=== PATIENT | female | born 1940 | race Caucasian/White ===

== ENCOUNTER 2018-01-22 18:59 | Inpatient (IN) ==
[2018-01-22] MEDS: traZODone 50 MG TABLET PO SCH (22:02)
[2018-01-22] MEDS: hydrALAZINE 25 MG TABLET PO SCH (23:48)
[2018-01-23 06:10] LABS: Basophils % 0.2 %; Eosinophils # 0.1 K/mcL (0.0-0.6); Eosinophils % 1.4 %; Hematocrit 26.9 % (35.3-44.9); Hemoglobin 9.2 g/dL (11.5-15.4); Immature Granulocytes % 0.3 % (0-4); Lymphocytes # 0.9 K/mcL (0.6-4.6); Mean Corpuscular HGB Conc 34.2 g/dL (31.6-35.5); Mean Corpuscular Hemoglobin 31.8 pg (28.0-33.3); Mean Corpuscular Volume 93.1 fL (83.0-100.0); Mean Platelet Volume 8.9 fL (9.4-12.4); Monocytes # 0.7 K/mcL (0.0-1.3); Monocytes % 10.7 %; Neutrophils # 4.8 K/mcL (1.6-8.9); Platelet Count 180 K/mcL (140-400); Red Blood Count 2.89 M/mcL (3.82-4.97); Red Cell Distribution Width 13.6 % (11.5-14.5); Segmented Neutrophils % 73.4 %
[2018-01-23 06:33] LABS: INR 1.1; Prothrombin Time 11.9 Seconds (9.4-12.1)
[2018-01-23 06:36] LABS: Activated Partial Thrombo Time 27.5 Seconds (26.0-36.0)
[2018-01-23 06:39] LABS: BUN/Creatinine Ratio 21 (6-26); Blood Urea Nitrogen 13 mg/dL (8-23); Calcium 8.5 mg/dL (8.6-10.3); Carbon Dioxide 25 mEq/L (23-29); Chloride 108 mEq/L (98-107); Glucose 114 mg/dL (70-105); Osmolality,Calculated 285 (280-300); Potassium 3.8 mEq/L (3.5-5.1); Sodium 137 mEq/L (136-145); eGFR For Non-African Americans > 60 (> 60)
[2018-01-23] MEDS: hydrALAZINE 25 MG TABLET PO SCH ×3 (09:35→23:55)
[2018-01-23] MEDS: levoFLOXacin 500 MG TABLET PO SCH (09:35)
[2018-01-23] MEDS: Aspirin Enteric Coated 81 MG Tablet PO SCH (09:35)
[2018-01-23] MEDS: Multivit/Ca/Min/Fe/FA 1 TAB TABLET PO SCH (09:36)
--- NOTE | 2018-01-23 14:36 | Internal Med History&Physical ---
Date of Encounter: 01/23/18 Time of Encounter: 14:00 Assessment and Plan (1) Hyponatremia Current visit: No Status: Acute Improved normalized (2) Hypertension Current visit: No Status: Chronic Blood pressure is well controlled Qualifiers: Hypertension type: essential hypertension Qualified Code(s): I10 - Essential (primary) hypertension (3) Hypothyroidism Current visit: No Status: Chronic By history Qualifiers: Hypothyroidism type: acquired Qualified Code(s): E03.9 - Hypothyroidism, unspecified (4) Hypokalemia Current visit: No Status: Acute Potassium is now within normal range (5) Elevated troponin Current visit: No Status: Acute Normalized will follow up with at least one check a [facility] (6) ACS (acute coronary syndrome) Current visit: No Status: Acute No shortness of breath or complaints of chest pain. (7) Near syncope Current visit: No Status: Acute Currently stable ambulated with the nurse to the bathroom without difficulty Internal Medicine - H&P: HPI Chief complaint: frequent falling Admitted From: Hospital to Hospital Transfer Plans for Post Hospital Care: Transfer Long-Term Care History of present illness: Ms. Kent is a 77 year old female Past Med Surg Social Fam HX - Past Medical History Medical history: arthritis, GERD, hyperlipidemia, hypertension, thyroid disease, other Additional medical history: chronic constipation Psychiatric history: depression - Past Surgical History Surgical History: appendectomy, hysterectomy, knee replacement Additional surgical history: left knee replacement - Social History Smoking Status: Never smoker Smokeless Tobacco Status: No Alcohol use: none Drug use: none - Family History Brother Hx Family Cardiac Disorders: Yes (CABG) Hx Family Cancer: Yes Hx Family Endocrine Disorder: Yes (diabetes) Internal Medicine - H&P: Meds Aspirin [Lo-Dose Aspirin EC] 81 mg PO DAILY 07/24/16 [History] Atorvastatin Calcium [Lipitor] 80 mg PO HS 07/24/16 [History] Calcium Carbonate [Calcium] 500 mg PO DAILY 07/24/16 [History] Donepezil [Aricept] 10 mg PO HS 07/24/16 [History] Levothyroxine [Synthroid] 50 mcg PO 0630 07/24/16 [History] Meclizine HCl [Verticalm] 25 mg PO DAILY PRN 07/24/16 [History] Mv-Mn/FA/Vit K/Lycop/Lut/Coq10 [Daily Multivitamin Capsule] 1 each PO DAILY 07/24/16 [History] Omeprazole [PriLOSEC] 40 mg PO DAILY 07/24/16 [History] traZODone [TraZODone] 50 mg PO HS 07/24/16 [History] hydrALAZINE [HydrALAZINE] 50 mg PO Q8HR #180 tablet 07/26/16 [Rx] Oxybutynin [Ditropan] 5 mg PO BID 07/28/16 [History] Potassium Chloride [Klor-Con 10] 10 meq PO BID 07/28/16 [History] Sodium Chloride [Sodium Chloride Tab] 1 gm PO TID 04/06/17 [History] Carvedilol 12.5 mg PO BID 01/20/18 [History] Chlorthalidone 25 mg PO DAILY 01/21/18 [History] Cholecalciferol (Vitamin D3) [Vitamin D3] 50,000 unit SQ QWEEK 01/21/18 [History] Escitalopram [Lexapro] 20 mg PO DAILY 01/21/18 [History] Meloxicam [Mobic] 15 mg PO DAILY 01/21/18 [History] levoFLOXacin [Levaquin] 500 mg PO DAILY tablet 01/22/18 [Rx] Allergy/AdvReac Type Severity Reaction Status Date / Time Penicillins Allergy Rash Verified 01/20/18 12:17 codeine AdvReac Vomiting Verified 01/20/18 12:17 All Systems PM: A 10-system review of systems was performed and is negative for pertinent findings except as documented above in the HPI. - Constitutional Constitutional: falls, weakness - Cardiovascular Cardiovascular ROS IM: irregular heart rhythm - Genitourinary Additional comments: Testing. Patient was diagnosed to treated for UTI from the ER Menstruation: post menopausal - Musculoskeletal Musculoskeletal ROS IM: stiffness - Constitutional Vitals: Temp Pulse Resp BP Pulse Ox 97.6 F 69 16 169/84 97 01/23/18 12:00 01/23/18 12:00 01/23/18 12:00 01/23/18 12:00 01/23/18 12:00 General appearance: Present: A&O X 2, A&O X 3, no acute distress - Head Head exam: Present: atraumatic, normocephalic - Neck Neck exam general surgery: Present: supple, trachea midline. Absent: lymphadenopathy - Respiratory Respiratory exam: Present: decreased breath sounds, CTAB, prolonged expiratory phase. Absent: accessory muscle use, rales, rhonchi, wheezes - Cardiovascular Cardiovascular exam: Present: irregular rhythm, RRR, +S1, +S2. Absent: diastolic murmur, gallop, rubs, systolic murmur - GI/Abdominal GI/Abdominal exam: Present: normal bowel sounds, soft, no peritoneal signs. Absent: distended, tenderness Internal Med - H&P Results - Labs CBC & Chem 7: 01/23/18 06:00 01/23/18 06:00 Labs: Short CBC 01/23/18 Range/Units 06:00 WBC 6.5 (4.3-11.1) K/mcL Hgb 9.2 L (11.5-15.4) g/dL Hct 26.9 L (35.3-44.9) % Plt Count 180 (140-400) K/mcL Neutrophils # 4.8 (1.6-8.9) K/mcL BMP 01/23/18 06:00 Sodium 137 Potassium 3.8 Chloride 108 H Carbon Dioxide 25 BUN 13 Creatinine 0.61 Glucose 114 H Calcium 8.5 L
[2018-01-23] MEDS: traZODone 50 MG TABLET PO SCH (20:17)
[2018-01-24] MEDS: Aspirin Enteric Coated 81 MG Tablet PO SCH (10:11)
[2018-01-24] MEDS: levoFLOXacin 500 MG TABLET PO SCH (10:11)
[2018-01-24] MEDS: hydrALAZINE 25 MG TABLET PO SCH ×2 (10:12→18:10)
[2018-01-24] MEDS: Multivit/Ca/Min/Fe/FA 1 TAB TABLET PO SCH (10:12)
--- NOTE | 2018-01-24 15:19 | Internal Med Progress Note ---
Addendum entered and electronically signed by Marc Terry DO 01/25/18 11:20: I have personally performed a face to face evaluation on this patient. I have reviewed and agree with the care plan. History and Exam by me shows: Original Note: Date of Encounter: 01/24/18 Time of Encounter: 15:13 - Assessment and plan (1) ACS (acute coronary syndrome) Current Visit: No Status: Acute Assessment and plan: Patient appears relaxed and denies any chest discomforts or palpitations. HR reg. Progressing well with therapy. Continue with current plan of care. (2) Hypertension Current Visit: No Status: Chronic Assessment and plan: VSS. Continue on current meds. Qualifiers: Hypertension type: essential hypertension Qualified Code(s): I10 - Essential (primary) hypertension - Subjective Interval history: Patient currently denies any discomforts or shortness of breath. Denies any palpitations. States that physical therapy has been progressing well. - Constitutional Vitals: Temp Pulse Resp BP Pulse Ox 98.6 F 72 18 170/95 96 01/24/18 06:56 01/24/18 06:56 01/24/18 06:56 01/24/18 06:56 01/24/18 06:56 General appearance: Present: A&O X 2, A&O X 3, no acute distress - Head Head exam: Present: atraumatic, normocephalic - Eye Eye exam: Present: PERRL, conjuntiva pink, sclera anicteric Pupils: Present: PERRL - Neck Neck exam general surgery: Present: supple, trachea midline. Absent: lymphadenopathy - Respiratory Respiratory exam: Present: CTAB. Absent: accessory muscle use, rales, rhonchi, wheezes - Cardiovascular Cardiovascular exam: Present: RRR, +S1, +S2. Absent: diastolic murmur, gallop, rubs, systolic murmur - GI/Abdominal GI/Abdominal exam: Present: normal bowel sounds, soft, no peritoneal signs. Absent: distended, tenderness - Extremities Exam Extremities exam: Present: warm, radial pulses palpable and symmetrical. Absent: calf tenderness, cyanotic, pedal edema - Neurological Exam Neurological exam: Present: CN II-XII intact, oriented X3, no focal deficits. Absent: pronater drift, facial droop, speech deficit - Skin Skin exam: Present: dry, intact Internal Medicine: Result - Labs CBC & Chem 7: 01/23/18 06:00 01/23/18 06:00 - ABG Interpretation ABG results: PT/INR, D-dimer PT 11.9 Seconds (9.4-12.1) 01/23/18 06:00 - VTE Documentation of Mechanical Device: Graduated compression elastic hosiery Consult Discharge Plan - Plan Referrals: Nino Mosqueda MD [Primary Care Provider] -
[2018-01-24] MEDS: traZODone 50 MG TABLET PO SCH (21:11)
[2018-01-25] MEDS: hydrALAZINE 25 MG TABLET PO SCH ×3 (00:23→17:16)
[2018-01-25] MEDS: Multivit/Ca/Min/Fe/FA 1 TAB TABLET PO SCH (10:48)
[2018-01-25] MEDS: levoFLOXacin 500 MG TABLET PO SCH (10:48)
[2018-01-25] MEDS: Aspirin Enteric Coated 81 MG Tablet PO SCH (10:49)
--- NOTE | 2018-01-25 12:48 | Internal Med Progress Note ---
Date of Encounter: 01/25/18 Time of Encounter: 12:47 - Assessment and plan (1) ACS (acute coronary syndrome) Current Visit: No Status: Acute Assessment and plan: Patient appears relaxed and denies any chest discomforts or palpitations. HR reg. Progressing well with therapy. Continue with current plan of care. (2) Hypertension Current Visit: No Status: Chronic Assessment and plan: VSS. Continue on current meds. Qualifiers: Hypertension type: essential hypertension Qualified Code(s): I10 - Essential (primary) hypertension - Time Spent With Patient less than 15 minutes - Subjective Interval history: Patient currently denies any discomforts or shortness of breath. Denies any palpitations. States that physical therapy has been progressing well. - Constitutional Vitals: Temp Pulse Resp BP Pulse Ox 98.2 F 73 16 179/91 94 01/25/18 07:00 01/25/18 07:00 01/25/18 07:00 01/25/18 07:00 01/25/18 07:00 General appearance: Present: A&O X 2, A&O X 3, no acute distress - Head Head exam: Present: atraumatic, normocephalic - Eye Eye exam: Present: PERRL, conjuntiva pink, sclera anicteric Pupils: Present: PERRL - Neck Neck exam general surgery: Present: supple, trachea midline. Absent: lymphadenopathy - Respiratory Respiratory exam: Present: CTAB. Absent: accessory muscle use, rales, rhonchi, wheezes - Cardiovascular Cardiovascular exam: Present: RRR, +S1, +S2. Absent: diastolic murmur, gallop, rubs, systolic murmur - GI/Abdominal GI/Abdominal exam: Present: normal bowel sounds, soft, no peritoneal signs. Absent: distended, tenderness - Extremities Exam Extremities exam: Present: warm, radial pulses palpable and symmetrical. Absent: calf tenderness, cyanotic, pedal edema - Neurological Exam Neurological exam: Present: CN II-XII intact, oriented X3, no focal deficits. Absent: pronater drift, facial droop, speech deficit - Skin Skin exam: Present: dry, intact Internal Medicine: Result - Labs CBC & Chem 7: 01/23/18 06:00 01/23/18 06:00 - ABG Interpretation ABG results: PT/INR, D-dimer PT 11.9 Seconds (9.4-12.1) 01/23/18 06:00 - VTE Documentation of Mechanical Device: Graduated compression elastic hosiery Consult Discharge Plan - Plan Referrals: Nino Mosqueda MD [Primary Care Provider] -
[2018-01-25] MEDS: traZODone 50 MG TABLET PO SCH (22:30)
[2018-01-26] MEDS: hydrALAZINE 25 MG TABLET PO SCH ×4 (01:22→23:50)
[2018-01-26] MEDS: Aspirin Enteric Coated 81 MG Tablet PO SCH (08:32)
[2018-01-26] MEDS: Multivit/Ca/Min/Fe/FA 1 TAB TABLET PO SCH (08:33)
[2018-01-26] MEDS: levoFLOXacin 500 MG TABLET PO SCH (08:33)
--- NOTE | 2018-01-26 10:19 | Internal Med Progress Note ---
Date of Encounter: 01/26/18 Time of Encounter: 10:18 - Subjective Interval history: - Assessment and plan (1) ACS (acute coronary syndrome) Current Visit: No Status: Acute Assessment and plan: Patient appears relaxed and denies any chest discomforts or palpitations. HR reg. Progressing well with therapy. Continue with current plan of care. She is on diuretic and BP stable. Will recheck basic metabolic profile. (2) Hypertension Current Visit: No Status: Chronic Assessment and plan: VSS. Continue on current meds. Qualifiers: Hypertension type: essential hypertension Qualified Code(s): I10 - Essential (primary) hypertension - Time Spent With Patient less than 15 minutes - Subjective Interval history: Patient currently denies any discomforts or shortness of breath. Denies any palpitations. States that physical therapy has been progressing well. - Constitutional Vitals: Temp Pulse Resp BP Pulse Ox 98.2 F 73 16 179/91 94 01/25/18 07:00 01/25/18 07:00 01/25/18 07:00 01/25/18 07:00 01/25/18 07:00 General appearance: Present: A&O X 2, A&O X 3, no acute distress - Head Head exam: Present: atraumatic, normocephalic - Eye Eye exam: Present: PERRL, conjuntiva pink, sclera anicteric Pupils: Present: PERRL - Neck Neck exam general surgery: Present: supple, trachea midline. Absent: lymphadenopathy - Respiratory Respiratory exam: Present: CTAB. Absent: accessory muscle use, rales, rhonchi, wheezes - Cardiovascular Cardiovascular exam: Present: RRR, +S1, +S2. Absent: diastolic murmur, gallop, rubs, systolic murmur - GI/Abdominal GI/Abdominal exam: Present: normal bowel sounds, soft, no peritoneal signs. Absent: distended, tenderness - Extremities Exam Extremities exam: Present: warm, radial pulses palpable and symmetrical. Absent: calf tenderness, cyanotic, pedal edema - Neurological Exam Neurological exam: Present: CN II-XII intact, oriented X3, no focal deficits. Absent: pronater drift, facial droop, speech deficit - Skin Skin exam: Present: dry, intact - Constitutional Vitals: Temp Pulse Resp BP Pulse Ox 98.3 F 86 16 158/83 92 01/26/18 07:35 11/17/18 07:35 01/26/18 07:35 01/26/18 07:35 01/26/18 07:35 General appearance: Present: A&O X 2, A&O X 3, no acute distress Internal Medicine: Result - Labs CBC & Chem 7: 01/23/18 06:00 01/23/18 06:00 - ABG Interpretation ABG results: PT/INR, D-dimer PT 11.9 Seconds (9.4-12.1) 01/23/18 06:00 - VTE Documentation of Mechanical Device: Graduated compression elastic hosiery Consult Discharge Plan - Plan Referrals: Nino Mosqueda MD [Primary Care Provider] -
[2018-01-26] MEDS: traZODone 50 MG TABLET PO SCH (21:07)
[2018-01-27 05:30] LABS: BUN/Creatinine Ratio 29 (6-26); Blood Urea Nitrogen 19 mg/dL (8-23); Calcium 8.8 mg/dL (8.6-10.3); Carbon Dioxide 27 mEq/L (23-29); Chloride 102 mEq/L (98-107); Glucose 125 mg/dL (70-105); Osmolality,Calculated 284 (280-300); Sodium 135 mEq/L (136-145); eGFR For Non-African Americans > 60 (> 60)
[2018-01-27 05:37] LABS: Hematocrit 30.8 % (35.3-44.9); Hemoglobin 10.6 g/dL (11.5-15.4); Mean Corpuscular HGB Conc 34.4 g/dL (31.6-35.5); Mean Corpuscular Hemoglobin 31.9 pg (28.0-33.3); Mean Corpuscular Volume 92.8 fL (83.0-100.0); Mean Platelet Volume 8.4 fL (9.4-12.4); Platelet Count 303 K/mcL (140-400); Red Blood Count 3.32 M/mcL (3.82-4.97); Red Cell Distribution Width 13.4 % (11.5-14.5)
[2018-01-27] MEDS: levoFLOXacin 500 MG TABLET PO SCH (08:51)
[2018-01-27] MEDS: Multivit/Ca/Min/Fe/FA 1 TAB TABLET PO SCH (08:52)
[2018-01-27] MEDS: Aspirin Enteric Coated 81 MG Tablet PO SCH (08:52)
[2018-01-27] MEDS: hydrALAZINE 25 MG TABLET PO SCH ×3 (08:52→23:19)
--- NOTE | 2018-01-27 12:45 | Internal Med Progress Note ---
Addendum entered and electronically signed by Hugh Bustamante MD 01/27/18 14:47: Discussed with patient and regarding possible etiology of fall. None was found. She states that she is feeling better and that she was told this is all urinary tract infection, at the other hospital. asks about one week and send her home and I just referred to therapy sta ff, tomorrow. Discussed care with other providers and/or nursing. Patient has no complaint of chest discomfort, dyspnea, orthopnea, palpitations, nausea or vomiting, constipation or diarrhea, other changes in bowel habits, difficulty with urination, rash or itching, or other new complaints, except as mentioned above. Review of systems is otherwise negative. Examination: (Except as mentioned above): General: In no apparent distress. Alert and oriented 3. Nondiaphoretic. Head: Atraumatic and normocephalic. Respiratory: No use of accessory muscles. Lungs are clear throughout. Normal airflow. Cardiovascular: Regular rate and rhythm without murmur appreciated. Abdomen: Bowel sounds are normal. No hepatosplenomegaly mass or tenderness appreciated. Extremities: No cyanosis clubbing or edema. Skin: Warm and non-diaphoretic with no new lesions noted. Original Note: Date of Encounter: 01/27/18 Time of Encounter: 12:44 - Assessment and plan (1) ACS (acute coronary syndrome) Current Visit: No Status: Acute Assessment and plan: Patient appears relaxed and denies any chest discomforts or palpitations. Heart rate remains regular. Progressing well with therapy. Continue with current plan of care. (2) Hypertension Current Visit: No Status: Chronic Assessment and plan: VSS. Continue on current meds. Qualifiers: Hypertension type: essential hypertension Qualified Code(s): I10 - Essential (primary) hypertension - Time Spent With Patient less than 15 minutes - Subjective Interval history: Patient currently denies any discomforts or shortness of breath. Denies any palpitations or chest discomforts. States that physical therapy has been progressing well. - Constitutional Vitals: Temp Pulse Resp BP Pulse Ox 99.3 F 75 16 163/83 95 01/27/18 10:42 01/27/18 10:42 01/27/18 10:42 01/27/18 10:42 01/27/18 10:42 General appearance: Present: A&O X 2, A&O X 3, no acute distress - Head Head exam: Present: atraumatic, normocephalic - Eye Eye exam: Present: PERRL, conjuntiva pink, sclera anicteric Pupils: Present: PERRL - Neck Neck exam general surgery: Present: supple, trachea midline. Absent: lymphadenopathy - Respiratory Respiratory exam: Present: CTAB. Absent: accessory muscle use, rales, rhonchi, wheezes - Cardiovascular Cardiovascular exam: Present: RRR, +S1, +S2. Absent: diastolic murmur, gallop, rubs, systolic murmur - GI/Abdominal GI/Abdominal exam: Present: normal bowel sounds, soft, no peritoneal signs. Absent: distended, tenderness - Extremities Exam Extremities exam: Present: warm, radial pulses palpable and symmetrical. Absent: calf tenderness, cyanotic, pedal edema - Neurological Exam Neurological exam: Present: CN II-XII intact, oriented X3, no focal deficits. Absent: pronater drift, facial droop, speech deficit - Skin Skin exam: Present: dry, intact Internal Medicine: Result - Labs CBC & Chem 7: 01/27/18 04:15 01/27/18 04:15 Labs: Short CBC 01/27/18 Range/Units 04:15 WBC 9.0 (4.3-11.1) K/mcL Hgb 10.6 L (11.5-15.4) g/dL Hct 30.8 L (35.3-44.9) % Plt Count 303 D (140-400) K/mcL BMP 01/27/18 04:15 Sodium 135 L Potassium 4.0 Chloride 102 Carbon Dioxide 27 BUN 19 Creatinine 0.66 Glucose 125 H Calcium 8.8 - ABG Interpretation ABG results: PT/INR, D-dimer PT 11.9 Seconds (9.4-12.1) 01/23/18 06:00 - VTE Documentation of Mechanical Device: Graduated compression elastic hosiery Consult Discharge Plan - Plan Referrals: Nino Mosqueda MD [Primary Care Provider] -
[2018-01-27] MEDS: traZODone 50 MG TABLET PO SCH (20:15)
[2018-01-28 06:19] LABS: Basophils % 0.5 %; Eosinophils # 0.2 K/mcL (0.0-0.6); Eosinophils % 2.8 %; Hematocrit 33.5 % (35.3-44.9); Hemoglobin 11.3 g/dL (11.5-15.4); Immature Granulocytes % 3.5 % (0-4); Lymphocytes # 1.6 K/mcL (0.6-4.6); Lymphocytes % 19.7 %; Mean Corpuscular HGB Conc 33.7 g/dL (31.6-35.5); Mean Corpuscular Hemoglobin 31.7 pg (28.0-33.3); Mean Corpuscular Volume 93.8 fL (83.0-100.0); Mean Platelet Volume 8.6 fL (9.4-12.4); Monocytes # 0.8 K/mcL (0.0-1.3); Monocytes % 10.1 %; Neutrophils # 5.2 K/mcL (1.6-8.9); Platelet Count 345 K/mcL (140-400); Red Blood Count 3.57 M/mcL (3.82-4.97); Red Cell Distribution Width 13.5 % (11.5-14.5); Segmented Neutrophils % 63.4 %
[2018-01-28 06:34] LABS: BUN/Creatinine Ratio 20 (6-26); Blood Urea Nitrogen 15 mg/dL (8-23); Calcium 8.8 mg/dL (8.6-10.3); Carbon Dioxide 28 mEq/L (23-29); Chloride 102 mEq/L (98-107); Glucose 109 mg/dL (70-105); Osmolality,Calculated 281 (280-300); Potassium 4.3 mEq/L (3.5-5.1); Sodium 135 mEq/L (136-145); eGFR For Non-African Americans > 60 (> 60)
[2018-01-28 07:51] VITALS: BP 174/96
[2018-01-28] MEDS: levoFLOXacin 500 MG TABLET PO SCH (08:35)
[2018-01-28] MEDS: Aspirin Enteric Coated 81 MG Tablet PO SCH (08:36)
[2018-01-28] MEDS: hydrALAZINE 25 MG TABLET PO SCH (08:36)
[2018-01-28] MEDS: Multivit/Ca/Min/Fe/FA 1 TAB TABLET PO SCH (08:37)
--- NOTE | 2018-01-28 12:01 | Physician Discharge Referral ---
Addendum entered and electronically signed by Hugh Bustamante MD 01/29/18 12:18: Original Note: Home Health/Hosp Referral Info Transfer to: Home Health Provider in Charge Post Discharge: PCP - Diagnosis (1) Frequent falls Priority: Primary Status: Acute (2) ACS (acute coronary syndrome) Priority: Primary Status: Acute (3) Hypertension Priority: Secondary Status: Chronic - Respiratory Orders Smoking Cessation: Smoking cessation has been advised. For more information, call the [place] Tobacco Quit Line at 5-759-NFGV-NOW. - Diet/Nutrition Diet/Nutrition Orders: Cardiac - Activity Activity Orders: Walker - Services Needed Following services are medically necessary services: Nursing, Physical Therapy - Transfer Medications Home Medications: Aspirin [Lo-Dose Aspirin EC] 81 mg PO DAILY 07/24/16 [History] Atorvastatin Calcium [Lipitor] 80 mg PO HS 07/24/16 [History] Calcium Carbonate [Calcium] 500 mg PO DAILY 07/24/16 [History] Donepezil [Aricept] 10 mg PO HS 07/24/16 [History] Levothyroxine [Synthroid] 50 mcg PO 0630 07/24/16 [History] Meclizine HCl [Verticalm] 25 mg PO DAILY PRN 07/24/16 [History] Mv-Mn/FA/Vit K/Lycop/Lut/Coq10 [Daily Multivitamin Capsule] 1 each PO DAILY 07/24/16 [History] Omeprazole [PriLOSEC] 40 mg PO DAILY 07/24/16 [History] traZODone [TraZODone] 50 mg PO HS 07/24/16 [History] hydrALAZINE [HydrALAZINE] 50 mg PO Q8HR #180 tablet 07/26/16 [Rx] Oxybutynin [Ditropan] 5 mg PO BID 07/28/16 [History] Potassium Chloride [Klor-Con 10] 10 meq PO BID 07/28/16 [History] Sodium Chloride [Sodium Chloride Tab] 1 gm PO TID 04/06/17 [History] Carvedilol 12.5 mg PO BID 01/20/18 [History] Chlorthalidone 25 mg PO DAILY 01/21/18 [History] Cholecalciferol (Vitamin D3) [Vitamin D3] 50,000 unit SQ QWEEK 01/21/18 [History] Escitalopram [Lexapro] 20 mg PO DAILY 01/21/18 [History] Meloxicam [Mobic] 15 mg PO DAILY 01/21/18 [History] levoFLOXacin [Levaquin] 500 mg PO DAILY tablet 01/22/18 [Rx] Allergies/Adverse Reactions: Allergy/AdvReac Type Severity Reaction Status Date / Time Penicillins Allergy Rash Verified 01/20/18 12:17 codeine AdvReac Vomiting Verified 01/20/18 12:17 Certification: Further, I certify that my clinical findings support that this patient is home bound (i.e. absences from home require considerable and taxing effort and are for medical reasons or spiritism services or infrequently or short duration when for other reasons) because: Homebound Reason: Patient requires assistance of a person or device to safely leave home, Leaving home requires considerable and taxing effort due to condition Attestation: My signature below is to certify that this patient is under my care and that I, or nurse practitioner, or a physician's assistant banquet manager working with me, has a [id number] encounter with this patient.
--- NOTE | 2018-01-28 12:05 | Discharge Summary ---
Addendum entered and electronically signed by Hugh Bustamante MD 01/28/18 14:30: I have personally performed a face to face evaluation on this patient. I have r eviewed and agree with the care plan. History and Exam by me shows: Patient with no acute complaints. She feels well and feels like she has no risk of falling or unsteadiness. We discussed the fact that this may have been related to her urinary tract infection but if she has a feeling of falling or any other falls, she needs to seek urgent medical attention. She will relate this to her and family were not present at the time my visit. Discussed care with other providers and/or nursing. Patient has no complaint of chest discomfort, dyspnea, orthopnea, palpitations, nausea or vomiting, constipation or diarrhea, other changes in bowel habits, difficulty with urination, rash or itching, or other new complaints, except as mentioned above. Review of systems is otherwise negative. Examination: (Except as mentioned above): General: In no apparent distress. Alert and oriented 3. Nondiaphoretic. Head: Atraumatic and normocephalic. Respiratory: No use of accessory muscles. Lungs are clear throughout. Normal airflow. Cardiovascular: Regular rate and rhythm without murmur appreciated. Absolutely no arrhythmia. Abdomen: Bowel sounds are normal. No hepatosplenomegaly mass or tenderness appreciated. Extremities: No cyanosis clubbing or edema. Skin: Warm and non-diaphoretic with no new lesions noted. Original Note: Orders not resulted at time of discharge: Pending orders 02/04/18 04:00 Basic Metabolic Panel MO CBC [Complete Blood Count] [HEME] MO 02/11/18 04:00 Basic Metabolic Panel MO CBC [Complete Blood Count] [HEME] MO Date of Encounter: 01/28/18 Time of Encounter: 12:02 - Discharge Diagnosis (1) Frequent falls Priority: Primary Status: Acute Comments: Continue home physical therapy. (2) ACS (acute coronary syndrome) Priority: Primary Status: Acute Comments: denies chest pain. Heart rate regular. Follow up with cardiology as scheduled. Continue medication (3) Hypertension Priority: Secondary Status: Chronic Comments: Controlled with current medication. Monitor blood pressure. Follow up with PCP. Qualifiers: Hypertension type: essential hypertension Qualified Code(s): I10 - Essential (primary) hypertension Hospital course: Ms. Kent is a 77 year old female discharging to home with . Patient is ambulating household distances with Walker. Will continue home physical therapy and nursing. Patient denies any current concerns or questions. Denies chest pain, shortness breath, fever, chills, nausea vomiting or diarrhea. Instructed to follow up with family physician in one week. Discharge discussed with: patient, family, nurse, social work - Time Spent with Patient Total time spent providing and/or coordinating discharge services: - Discharge Medications Home Medications: Aspirin [Lo-Dose Aspirin EC] 81 mg PO DAILY 07/24/16 [History] Atorvastatin Calcium [Lipitor] 80 mg PO HS 07/24/16 [History] Calcium Carbonate [Calcium] 500 mg PO DAILY 07/24/16 [History] Donepezil [Aricept] 10 mg PO HS 07/24/16 [History] Levothyroxine [Synthroid] 50 mcg PO 0630 07/24/16 [History] Meclizine HCl [Verticalm] 25 mg PO DAILY PRN 07/24/16 [History] Mv-Mn/FA/Vit K/Lycop/Lut/Coq10 [Daily Multivitamin Capsule] 1 each PO DAILY 07/24/16 [History] Omeprazole [PriLOSEC] 40 mg PO DAILY 07/24/16 [History] traZODone [TraZODone] 50 mg PO HS 07/24/16 [History] hydrALAZINE [HydrALAZINE] 50 mg PO Q8HR #180 tablet 07/26/16 [Rx] Oxybutynin [Ditropan] 5 mg PO BID 07/28/16 [History] Potassium Chloride [Klor-Con 10] 10 meq PO BID 07/28/16 [History] Sodium Chloride [Sodium Chloride Tab] 1 gm PO TID 04/06/17 [History] Carvedilol 12.5 mg PO BID 01/20/18 [History] Chlorthalidone 25 mg PO DAILY 01/21/18 [History] Cholecalciferol (Vitamin D3) [Vitamin D3] 50,000 unit SQ QWEEK 01/21/18 [History] Escitalopram [Lexapro] 20 mg PO DAILY 01/21/18 [History] Meloxicam [Mobic] 15 mg PO DAILY 01/21/18 [History] Docusate [Colace] 100 mg PO BID PRN capsule 01/28/18 [Rx] Allergies/Adverse Reactions: Allergy/AdvReac Type Severity Reaction Status Date / Time Penicillins Allergy Rash Verified 01/20/18 12:17 codeine AdvReac Vomiting Verified 01/20/18 12:17 Date of admission: 01/22/18 19:00 Primary care physician: Nino Mosqueda MD Consults: 01/22/18 21:02 Consult to Occupational Therapy [CONS] Routine Comment: Eval and Treat Reason for Consult: Eval and Treat Does patient have active BEDREST order?: No Is patient medically & hemodynamically stable?: Yes Patient assessed for mobility or mobilized this visit?: No Consult to Physical Therapy [CONS] Routine Comment: Eval and Treat Reason for Consult: Eval and Treat Does patient have active BEDREST order?: No Is patient medically & hemodynamically stable?: Yes Patient assessed for mobility or mobilized this visit?: No Consult to Recreational Therapy [CONS] Routine Comment: Consult to Tank Operator [CONS] Routine Reason for SW Consult: Discharge Planning 01/22/18 21:13 Consult to Physician [CONS] Routine Consulting Provider: Malia Cervantes Reason for Consult: Eval and Treat Call Completed: No Discharging clinician: Hugh Bustamante Anticipated date of discharge: 01/28/18 - Constitutional Vitals: Temp Pulse Resp BP Pulse Ox 98.3 F 71 17 174/96 94 01/28/18 07:50 01/28/18 07:50 01/28/18 07:50 01/28/18 07:50 01/28/18 07:50 General appearance: Present: A&O X 2, A&O X 3, no acute distress - Head Head exam: Present: atraumatic, normocephalic - Eye Eye exam: Present: PERRL, conjuntiva pink, sclera anicteric Pupils: Present: PERRL - Neck Neck exam general surgery: Present: supple, trachea midline. Absent: lymphadenopathy - Respiratory Respiratory exam: Present: CTAB. Absent: accessory muscle use, rales, rhonchi, wheezes - Cardiovascular Cardiovascular exam: Present: RRR, +S1, +S2. Absent: diastolic murmur, gallop, rubs, systolic murmur - GI/Abdominal GI/Abdominal exam: Present: normal bowel sounds, soft, no peritoneal signs. Absent: distended, tenderness - Extremities Exam Extremities exam: Present: warm, radial pulses palpable and symmetrical. Absent: calf tenderness, cyanotic, pedal edema - Neurological Exam Neurological exam: Present: CN II-XII intact, oriented X3, no focal deficits. Absent: pronater drift, facial droop, speech deficit - Skin Skin exam: Present: dry, intact - Patient Status Disposition: Home Health Service Condition: Good Functional capacity at discharge: uses cane/walker Overall status at discharge: patient is progressing back to baseline - Discharge Instructions Follow Up With: Nino Mosqueda MD [Primary Care Provider] - - Diet and Activity Activity: as per physical therapy Diet: advance to your usual diet - VTE Documentation of Mechanical Device: Graduated compression elastic hosiery
== END 2018-01-28 13:25 | disposition home health service (06) | DRG 311 ==
LOC: INPGRE 19:00
PROVIDERS: ADMIT Internal Medicine; ATTEND Internal Medicine

== ENCOUNTER 2018-04-30 10:42 | Inpatient (IN) ==
[2018-04-30] MEDS: traZODone 50 MG TABLET PO SCH (21:49)
[2018-04-30] MEDS ORDERED: Acetaminophen 325 MG TABLET PO PRN (22:03)
[2018-04-30] MEDS ORDERED: Mag Hydrox/Al Hydrox/Simeth 30 ML UDC PO PRN (22:03)
[2018-05-01] MEDS ORDERED: hydrALAZINE 25 MG TABLET PO SCH
[2018-05-01] MEDS: *HR* Enoxaparin 40 MG/0.4 ML SYRINGE SQ SCH (05:52)
[2018-05-01] MEDS: hydrALAZINE 25 MG TABLET PO SCH ×3 (05:52→21:04)
[2018-05-01 05:56] LABS: Basophils % 0.5 %; Eosinophils # 0.3 K/mcL (0.0-0.6); Eosinophils % 3.2 %; Hematocrit 35.2 % (35.3-44.9); Hemoglobin 11.8 g/dL (11.5-15.4); Immature Granulocytes % 0.4 % (0-4); Lymphocytes # 1.9 K/mcL (0.6-4.6); Lymphocytes % 23.7 %; Mean Corpuscular HGB Conc 33.5 g/dL (31.6-35.5); Mean Corpuscular Volume 92.4 fL (83.0-100.0); Mean Platelet Volume 8.6 fL (9.4-12.4); Monocytes # 1.2 K/mcL (0.0-1.3); Monocytes % 14.6 %; Neutrophils # 4.7 K/mcL (1.6-8.9); Platelet Count 243 K/mcL (140-400); Red Blood Count 3.81 M/mcL (3.82-4.97); Red Cell Distribution Width 13.2 % (11.5-14.5); Segmented Neutrophils % 57.6 %
[2018-05-01 06:01] LABS: Prothrombin Time 11.7 Seconds (9.4-12.1)
[2018-05-01 06:03] LABS: Activated Partial Thrombo Time 30.2 Seconds (26.0-36.0)
[2018-05-01 06:12] LABS: Alanine Aminotransferase 13 Units/L (7-52); Albumin 3.5 g/dL (3.5-5.7); Albumin/Globulin Ratio 1.5 (1.1-2.2); Alkaline Phosphatase 66 Units/L (34-104); Aspartate Amino Transferase 14 Units/L (13-39); BUN/Creatinine Ratio 24 (6-26); Bilirubin,Total 0.3 mg/dL (0.3-1.0); Blood Urea Nitrogen 19 mg/dL (8-23); Carbon Dioxide 33 mEq/L (23-29); Chloride 97 mEq/L (98-107); Globulin 2.3 g/dL (2.4-3.5); Glucose 116 mg/dL (70-105); Osmolality,Calculated 281 (280-300); Potassium 4.6 mEq/L (3.5-5.1); Sodium 134 mEq/L (136-145); Total Protein 5.8 g/dL (6.4-8.9); eGFR For Non-African Americans > 60 (> 60)
[2018-05-01] MEDS: Aspirin Enteric Coated 81 MG Tablet PO SCH (08:57)
[2018-05-01] MEDS: hydroCHLOROthiazide 25 MG TABLET PO SCH (08:58)
[2018-05-01] MEDS: Multivit/Ca/Min/Fe/FA 1 TAB TABLET PO SCH (08:58)
--- NOTE | 2018-05-01 16:17 | Internal Med History&Physical ---
Addendum entered and electronically signed by Ashley Queen 05/02/18 14:45: I have personally performed a face to face evaluation on this patient. I have reviewed and agree with the care plan. Original Note: Date of Encounter: 05/01/18 Time of Encounter: 16:14 Assessment and Plan (1) TIA (transient ischemic attack) Current visit: Yes Status: Acute PT and OT to eval and treat. No new neurological deficits at this time. Follow up with neurology as scheduled. (2) Hyponatremia Current visit: Yes Status: Chronic Monitor labs. Asymptomatic. (3) Hypertension Current visit: Yes Status: Chronic Controlled with current medication. Monitor blood pressure. Qualifiers: Hypertension type: essential hypertension Qualified Code(s): I10 - Essential (primary) hypertension (4) Weakness Current visit: Yes Status: Acute PT and OT to eval and treat. Will follow progress. (5) Hypothyroidism Current visit: Yes Status: Chronic Controlled with levothyroxine. Qualifiers: Hypothyroidism type: unspecified Qualified Code(s): E03.9 - Hypothyroidism, unspecified Internal Medicine - H&P: HPI Admitted From: Hospital to Hospital Transfer Plans for Post Hospital Care: Home History of present illness: Ms. Kent is a 77 year old female admitted to rehab for medical management, PT and OT. Patient was admitted to [facility] and [place] status post TIA. Patient was recently treated for UTI. Prior to admission she became unresponsiveness and aphasia. She was transferred to hospital by squad with . Patient states she is feeling fine now. Here for deconditioning. Plan to return to home with . Currently ambulating with contact guard assist with therapy with walker. Denies any new neurological symptoms. Denies fever, chills, nausea vomiting or diarrhea. States bowels are moving as normal. Past medical history includes chronic hyponatremia, hypertension, hype rlipidemia and Gerd. Past Med Surg Social Fam HX - Past Medical History Medical history: arthritis, GERD, hyperlipidemia, hypertension, thyroid disease, other Additional medical history: chronic constipation Psychiatric history: depression - Past Surgical History Surgical History: appendectomy, hysterectomy, knee replacement Additional surgical history: left knee replacement - Social History Smoking Status: Never smoker Smokeless Tobacco Status: No Alcohol use: none Drug use: none - Family History Brother Living Status: Hx Family Cardiac Disorders: Yes (CABG) Hx Family Cancer: Yes Hx Family Endocrine Disorder: Yes (diabetes) Internal Medicine - H&P: Meds Aspirin [Lo-Dose Aspirin EC] 81 mg PO DAILY 07/24/16 [History] Atorvastatin Calcium [Lipitor] 80 mg PO HS 07/24/16 [History] Calcium Carbonate [Calcium] 500 mg PO DAILY 07/24/16 [History] Donepezil [Aricept] 10 mg PO HS 07/24/16 [History] Levothyroxine [Synthroid] 50 mcg PO 0630 07/24/16 [History] Meclizine HCl [Verticalm] 25 mg PO DAILY PRN 07/24/16 [History] Mv-Mn/FA/Vit K/Lycop/Lut/Coq10 [Daily Multivitamin Capsule] 1 each PO DAILY 07/24/16 [History] Omeprazole [PriLOSEC] 40 mg PO DAILY 07/24/16 [History] traZODone [TraZODone] 50 mg PO HS 07/24/16 [History] hydrALAZINE [HydrALAZINE] 50 mg PO Q8HR #180 tablet 07/26/16 [Rx] Oxybutynin [Ditropan] 5 mg PO BID 07/28/16 [History] Potassium Chloride [Klor-Con 10] 10 meq PO BID 07/28/16 [History] Sodium Chloride [Sodium Chloride Tab] 1 gm PO TID 04/06/17 [History] Carvedilol 12.5 mg PO BID 01/20/18 [History] Chlorthalidone 25 mg PO DAILY 01/21/18 [History] Cholecalciferol (Vitamin D3) [Vitamin D3] 50,000 unit SQ WE 01/21/18 [History] Escitalopram [Lexapro] 20 mg PO DAILY 01/21/18 [History] Meloxicam [Mobic] 15 mg PO DAILY 01/21/18 [History] Docusate [Colace] 100 mg PO BID PRN capsule 01/28/18 [Rx] Alendronate Sodium 70 mg PO WE 04/27/18 [History] Guaifenesin [Mucinex] 600 mg PO Q12H PRN 04/27/18 [History] hydroCHLOROthiazide [Hydrochlorothiazide] 25 mg PO DAILY 04/27/18 [History] Allergy/AdvReac Type Severity Reaction Status Date / Time Penicillins Allergy Rash Verified 04/27/18 11:04 codeine AdvReac Vomiting Verified 04/27/18 11:04 All Systems PM: A 10-system review of systems was performed and is negative for pertinent findings except as documented above in the HPI. - Constitutional Constitutional: no chills, no fever(s), no night sweats - EENT Eyes: no change in vision, no discharge, no pain, no photophobia Ears: no ear discharge, no ear pain, no tinnitus Nose, mouth and throat: no dysphagia, no nasal discharge, no neck pain, no sore throat - Cardiovascular Cardiovascular ROS IM: no chest pain, no diaphoresis, no dyspnea, no lightheadedness, no palpitations, no syncope - Respiratory Respiratory: no cough, no dyspnea, no wheezing, no excessive phlegm production - Gastrointestinal Gastrointestinal: no abdominal pain, no diarrhea, no hematemesis, no hematochezia, no melena, no nausea, no vomiting - Genitourinary Genitourinary: no change in urinary stream, no dysuria, no flank pain, no hematuria - Musculoskeletal Musculoskeletal ROS IM: no numbness, no tingling - Integumentary Integumentary IM: no rash, no unusual bruising - Neurological Neurological ROS: no confusion, no convulsions, no focal weakness, no numbness, no tingling, no tremor(s) - Hematologic/Lymphatic Hematologic/Lymphatic: no easy bruising - Constitutional Vitals: Temp Pulse Resp BP Pulse Ox 98.2 F 70 16 134/68 95 05/01/18 14:10 05/01/18 16:11 05/01/18 16:11 05/01/18 16:11 05/01/18 16:11 General appearance: Present: cooperative, A&O X 3, pleasant, no acute distress, answers questions appropriately - Head Head exam: Present: atraumatic, normocephalic - Eye Eye exam: Present: PERRL, conjuntiva pink, sclera anicteric Pupils: Present: PERRL - Neck Neck exam general surgery: Present: supple, trachea midline. Absent: lymphadenopathy - Respiratory Respiratory exam: Present: CTAB. Absent: accessory muscle use, rales, rhonchi, wheezes - Cardiovascular Cardiovascular exam: Present: RRR, +S1, +S2. Absent: diastolic murmur, gallop, rubs, systolic murmur - GI/Abdominal GI/Abdominal exam: Present: normal bowel sounds, soft, no peritoneal signs. Absent: distended, tenderness - Extremities Exam Extremities exam: Present: warm, radial pulses palpable and symmetrical. Absent: calf tenderness, cyanotic, pedal edema - Neurological Exam Neurological exam: Present: CN II-XII intact, oriented X3, no focal deficits. Absent: pronater drift, facial droop, speech deficit - Skin Skin exam: Present: dry, intact Internal Med - H&P Results - Labs CBC & Chem 7: 05/01/18 05:50 05/01/18 05:50 Labs: Short CBC 05/01/18 Range/Units 05:50 WBC 8.2 (4.3-11.1) K/mcL Hgb 11.8 (11.5-15.4) g/dL Hct 35.2 L (35.3-44.9) % Plt Count 243 (140-400) K/mcL Neutrophils # 4.7 (1.6-8.9) K/mcL BMP 05/01/18 05:50 Sodium 134 L Potassium 4.6 Chloride 97 L Carbon Dioxide 33 H BUN 19 Creatinine 0.78 Glucose 116 H Calcium 9.0 Liver Function 05/01/18 Range/Units 05:50 Total Bilirubin 0.3 (0.3-1.0) mg/dL AST 14 (13-39) Units/L ALT 13 (7-52) Units/L Alkaline Phosphatase 66 (34-104) Units/L Albumin 3.5 (3.5-5.7) g/dL
[2018-05-01] MEDS ORDERED: NON-FORMULARY MEDICATION 1 EACH EACH (Alendronate Sodium [Alendronate Sodium] 70 MG) PO SCH (20:38)
[2018-05-01] MEDS: traZODone 50 MG TABLET PO SCH (21:04)
[2018-05-02] MEDS: hydrALAZINE 25 MG TABLET PO SCH ×3 (05:25→20:42)
[2018-05-02] MEDS: *HR* Enoxaparin 40 MG/0.4 ML SYRINGE SQ SCH (05:26)
[2018-05-02] MEDS ORDERED: Patient Taking Own Medication 1 EACH PO SCH (06:00)
[2018-05-02] MEDS: Multivit/Ca/Min/Fe/FA 1 TAB TABLET PO SCH (08:43)
[2018-05-02] MEDS: hydroCHLOROthiazide 25 MG TABLET PO SCH (08:43)
[2018-05-02] MEDS: Aspirin Enteric Coated 81 MG Tablet PO SCH (08:43)
--- NOTE | 2018-05-02 11:00 | Internal Med Progress Note ---
Addendum entered and electronically signed by Ashley Queen 05/02/18 14:46: I have personally performed a face to face evaluation on this patient. I have reviewed and agree with the care plan. She is fatigued but participating well and doing very well. Original Note: Date of Encounter: 05/02/18 Time of Encounter: 10:58 - Assessment and plan (1) TIA (transient ischemic attack) Current Visit: Yes Status: Acute Assessment and plan: No acute issues. Patient appears intact during neurological exam. Patient denies any current issues. We will continue with current therapy (2) Hypertension Current Visit: Yes Status: Chronic Assessment and plan: Vital signs are stable. We will continue with current medications. Qualifiers: Hypertension type: essential hypertension Qualified Code(s): I10 - Essential (primary) hypertension (3) Weakness Current Visit: Yes Status: Acute Assessment and plan: Patient admitted to this facility for further rehabilitation due to her weakness and history of falls. Continues with unsteady gait and uses a walker during ambulation. We will continue with physical therapy and current plan of care (4) UTI (urinary tract infection) Current Visit: Yes Status: Acute Assessment and plan: No acute issues. Patient remains afebrile at this time and denies any dysuria. We will continue to monitor closely. Qualifiers: Urinary tract infection type: site unspecified Hematuria presence: without hematuria Qualified Code(s): N39.0 - Urinary tract infection, site not specified - Time Spent With Patient less than 15 minutes - Subjective Interval history: Patient appears relaxed currently denies any discomforts or shortness of breath. She denies any dysuria - Constitutional Vitals: Temp Pulse Resp BP Pulse Ox 97.9 F 71 16 163/75 94 05/02/18 07:35 05/02/18 07:35 05/02/18 07:35 05/02/18 07:35 05/02/18 07:35 General appearance: Present: cooperative, A&O X 3, pleasant, no acute distress, answers questions appropriately - Head Head exam: Present: atraumatic, normocephalic - Eye Eye exam: Present: PERRL, conjuntiva pink, sclera anicteric Pupils: Present: PERRL - Neck Neck exam general surgery: Present: supple, trachea midline. Absent: lymphadenopathy - Respiratory Respiratory exam: Present: CTAB. Absent: accessory muscle use, rales, rhonchi, wheezes - Cardiovascular Cardiovascular exam: Present: RRR, +S1, +S2. Absent: diastolic murmur, gallop, rubs, systolic murmur - GI/Abdominal GI/Abdominal exam: Present: normal bowel sounds, soft, no peritoneal signs. Absent: distended, tenderness - Extremities Exam Extremities exam: Present: warm, radial pulses palpable and symmetrical. Absent: calf tenderness, cyanotic, pedal edema - Neurological Exam Neurological exam: Present: CN II-XII intact, oriented X3, no focal deficits. Absent: pronater drift, facial droop, speech deficit - Skin Skin exam: Present: dry, intact Internal Medicine: Result - Labs CBC & Chem 7: 05/01/18 05:50 05/01/18 05:50 - ABG Interpretation ABG results: PT/INR, D-dimer PT 11.7 Seconds (9.4-12.1) 05/01/18 05:50 Consult Discharge Plan - Plan Referrals: Rubi Reina DO [Primary Care Provider] -
[2018-05-02] MEDS: traZODone 50 MG TABLET PO SCH (20:43)
[2018-05-03] MEDS: *HR* Enoxaparin 40 MG/0.4 ML SYRINGE SQ SCH (06:04)
[2018-05-03] MEDS: hydrALAZINE 25 MG TABLET PO SCH (06:04)
[2018-05-03 07:30] VITALS: BP 133/76
[2018-05-03] MEDS: Multivit/Ca/Min/Fe/FA 1 TAB TABLET PO SCH (08:57)
[2018-05-03] MEDS: hydroCHLOROthiazide 25 MG TABLET PO SCH (08:57)
[2018-05-03] MEDS: Aspirin Enteric Coated 81 MG Tablet PO SCH (08:57)
--- NOTE | 2018-05-03 11:38 | Discharge Summary ---
Addendum entered and electronically signed by Ashley Queen 05/03/18 12:27: I examined this patient and my medical decision-making was reviewed . Original Note: Date of Encounter: 05/03/18 Time of Encounter: 11:34 - Discharge Diagnosis (1) TIA (transient ischemic attack) Priority: Primary Status: Acute Comments: Patient was transferred to this facility for further rehabilitation due to generalized weakness. Patient has been neuro intact on exam since her arrival with no recurring episodes of TIA. Patient is to continue follow-up with PCP and neurology. (2) Hypertension Priority: Secondary Status: Chronic Comments: Vital signs remained stable during her stay at this facility. Patient will be discharged home with home medications and follow-up with PCP Qualifiers: Hypertension type: essential hypertension Qualified Code(s): I10 - Essential (primary) hypertension (3) Weakness Priority: Secondary Status: Acute Comments: Patient was admitted to this facility for rehabilitation due to generalized weakness. Patient has progressed well during her stay with her therapy and will be discharged to home to continue physical therapy through home health services. (4) UTI (urinary tract infection) Priority: Secondary Status: Acute Comments: Patient has completed her round of Keflex and currently denies any dysuria. Remains afebrile. Problem resolved Qualifiers: Urinary tract infection type: site unspecified Hematuria presence: without hematuria Qualified Code(s): N39.0 - Urinary tract infection, site not specif ied Hospital course: Ms. Kent is a 77 year old female admitted to rehab for medical management, PT and OT. Patient was admitted to [facility] and [place] status post TIA. Patient was recently treated for UTI. Prior to admission she became unresponsiveness and aphasia. Denies any new neurological symptoms and has remained neurologically intact during exams while at this facility. No reoccurring episodes of TIA noted. Patient was admitted to this facility for rehabilitation due to generalized weakness and has progressed well with physical therapy. Patient will continue physical therapy at home to home health services. Denies fever, chills, nausea vomiting or diarrhea. Past medical history includes chronic hyponatremia, hypertension, hyperlipidemia and Gerd. Patient recommended to follow-up with PCP in one week Discharge discussed with: patient Time spent discussing smoking cessation with patient: 3 to 10 minutes - Time Spent with Patient Total time spent providing and/or coordinating discharge services: Less than 30 minutes - Discharge Medications Prescriptions: No Action Omeprazole [PriLOSEC] 40 mg PO DAILY Meclizine HCl [Verticalm] 25 mg PO DAILY PRN PRN Reason: Nausea Levothyroxine [Synthroid] 50 mcg PO 0630 Atorvastatin Calcium [Lipitor] 80 mg PO HS traZODone [TraZODone] 50 mg PO HS Donepezil [Aricept] 10 mg PO HS Mv-Mn/FA/Vit K/Lycop/Lut/Coq10 [Daily Multivitamin Capsule] 1 each PO DAILY Aspirin [Lo-Dose Aspirin EC] 81 mg PO DAILY Calcium Carbonate [Calcium] 500 mg PO DAILY hydrALAZINE [HydrALAZINE] 50 mg PO Q8HR #180 tablet Oxybutynin [Ditropan] 5 mg PO BID Potassium Chloride [Klor-Con 10] 10 meq PO BID Sodium Chloride [Sodium Chloride Tab] 1 gm PO TID Carvedilol 12.5 mg PO BID Chlorthalidone 25 mg PO DAILY Cholecalciferol (Vitamin D3) [Vitamin D3] 50,000 unit SQ WE Escitalopram [Lexapro] 20 mg PO DAILY Meloxicam [Mobic] 15 mg PO DAILY Alendronate Sodium 70 mg PO WE hydroCHLOROthiazide [Hydrochlorothiazide] 25 mg PO DAILY Guaifenesin [Mucinex] 600 mg PO Q12H PRN PRN Reason: Congestion Docusate [Colace] 100 mg PO BID PRN capsule PRN Reason: Constipation Home Medications: Aspirin [Lo-Dose Aspirin EC] 81 mg PO DAILY 07/24/16 [History] Atorvastatin Calcium [Lipitor] 80 mg PO HS 07/24/16 [History] Calcium Carbonate [Calcium] 500 mg PO DAILY 07/24/16 [History] Donepezil [Aricept] 10 mg PO HS 07/24/16 [History] Levothyroxine [Synthroid] 50 mcg PO 0630 07/24/16 [History] Meclizine HCl [Verticalm] 25 mg PO DAILY PRN 07/24/16 [History] Mv-Mn/FA/Vit K/Lycop/Lut/Coq10 [Daily Multivitamin Capsule] 1 each PO DAILY 07/24/16 [History] Omeprazole [PriLOSEC] 40 mg PO DAILY 07/24/16 [History] traZODone [TraZODone] 50 mg PO HS 07/24/16 [History] hydrALAZINE [HydrALAZINE] 50 mg PO Q8HR #180 tablet 07/26/16 [Rx] Oxybutynin [Ditropan] 5 mg PO BID 07/28/16 [History] Potassium Chloride [Klor-Con 10] 10 meq PO BID 07/28/16 [History] Sodium Chloride [Sodium Chloride Tab] 1 gm PO TID 04/06/17 [History] Carvedilol 12.5 mg PO BID 01/20/18 [History] Chlorthalidone 25 mg PO DAILY 01/21/18 [History] Cholecalciferol (Vitamin D3) [Vitamin D3] 50,000 unit SQ WE 01/21/18 [History] Escitalopram [Lexapro] 20 mg PO DAILY 01/21/18 [History] Meloxicam [Mobic] 15 mg PO DAILY 01/21/18 [History] Docusate [Colace] 100 mg PO BID PRN capsule 01/28/18 [Rx] Alendronate Sodium 70 mg PO WE 04/27/18 [History] Guaifenesin [Mucinex] 600 mg PO Q12H PRN 04/27/18 [History] hydroCHLOROthiazide [Hydrochlorothiazide] 25 mg PO DAILY 04/27/18 [History] Allergies/Adverse Reactions: Allergy/AdvReac Type Severity Reaction Status Date / Time Penicillins Allergy Rash Verified 04/27/18 11:04 codeine AdvReac Vomiting Verified 04/27/18 11:04 Date of admission: 04/30/18 19:54 Primary care physician: Rubi Reina Consults: 04/30/18 20:51 Consult to Nutrition [CONS] Routine Comment: weight loss Consulting Provider: NUTRITION Reason for Dietary Consult: Other Consult to Recreational Therapy [CONS] Routine Comment: Evaluate, develop and implement POC Consult to Dentist Private Practice [CONS] Routine Reason for SW Consult: discharge planning 05/01/18 04:00 Consult to Occupational Therapy [CONS] Routine Comment: Evaluate, develop and implement POC Reason for Consult: weakness Does patient have active BEDREST order?: No Is patient medically & hemodynamically stable?: Yes Patient assessed for mobility or mobilized this visit?: Yes 05/01/18 07:51 Consult to Physical Therapy [CONS] Routine Comment: Evaluate, develop and implement POC Reason for Consult: weakness, history of falls Does patient have active BEDREST order?: No Is patient medically & hemodynamically stable?: Yes Patient assessed for mobility or mobilized this visit?: Yes Discharging clinician: Ashley Queen - Constitutional Vitals: Temp Pulse Resp BP Pulse Ox 98.1 F 72 16 133/76 95 05/03/18 07:00 05/03/18 07:00 05/03/18 07:00 05/03/18 07:00 05/03/18 07:00 General appearance: Present: cooperative, A&O X 3, pleasant, no acute distress, answers questions appropriately - Head Head exam: Present: atraumatic, normocephalic - Eye Eye exam: Present: PERRL, conjuntiva pink, sclera anicteric Pupils: Present: PERRL - Neck Neck exam general surgery: Present: supple, trachea midline. Absent: lymphadenopathy - Respiratory Respiratory exam: Present: CTAB. Absent: accessory muscle use, rales, rhonchi, wheezes - Cardiovascular Cardiovascular exam: Present: RRR, +S1, +S2. Absent: diastolic murmur, gallop, rubs, systolic murmur - GI/Abdominal GI/Abdominal exam: Present: normal bowel sounds, soft, no peritoneal signs. Absent: distended, tenderness - Extremities Exam Extremities exam: Present: warm, radial pulses palpable and symmetrical. Absent: calf tenderness, cyanotic, pedal edema - Neurological Exam Neurological exam: Present: CN II-XII intact, oriented X3, no focal deficits. Absent: pronater drift, facial droop, speech deficit - Skin Skin exam: Present: dry, intact - Patient Status Disposition: Home Health Service Condition: Good Functional capacity at discharge: uses cane/walker Overall status at discharge: patient is progressing back to baseline - Discharge Instructions Follow Up With: Rubi Reina DO [Primary Care Provider] - - Diet and Activity Activity: ambulate only with your walker, as per physical therapy Diet: low fat, low cholesterol, low salt diet
--- NOTE | 2018-05-03 11:41 | Physician Discharge Referral ---
Addendum entered and electronically signed by Ashley Queen 05/03/18 12:27: I have personally performed a face to face evaluation on this patient. I have reviewed and agree with the care plan. Original Note: Home Health/Hosp Referral Info Transfer to: Home Health Provider in Charge Post Discharge: PCP - Diagnosis (1) TIA (transient ischemic attack) Priority: Primary Status: Acute (2) Hypertension Priority: Secondary Status: Chronic (3) Weakness Priority: Secondary Status: Acute (4) UTI (urinary tract infection) Priority: Secondary Status: Acute - Respiratory Orders Smoking Cessation: Smoking cessation has been advised. For more information, call the [place] Tobacco Quit Line at 2-440-JOQT-NOW. - Diet/Nutrition Diet/Nutrition Orders: No Added Salt (JOSE), Cardiac - Activity Activity Orders: Ambulate, Walker - Services Needed Following services are medically necessary services: Nursing, Home Health Aide, Physical Therapy - Transfer Medications Home Medications: Aspirin [Lo-Dose Aspirin EC] 81 mg PO DAILY 07/24/16 [History] Atorvastatin Calcium [Lipitor] 80 mg PO HS 07/24/16 [History] Calcium Carbonate [Calcium] 500 mg PO DAILY 07/24/16 [History] Donepezil [Aricept] 10 mg PO HS 07/24/16 [History] Levothyroxine [Synthroid] 50 mcg PO 0630 07/24/16 [History] Meclizine HCl [Verticalm] 25 mg PO DAILY PRN 07/24/16 [History] Mv-Mn/FA/Vit K/Lycop/Lut/Coq10 [Daily Multivitamin Capsule] 1 each PO DAILY 07/24/16 [History] Omeprazole [PriLOSEC] 40 mg PO DAILY 07/24/16 [History] traZODone [TraZODone] 50 mg PO HS 07/24/16 [History] hydrALAZINE [HydrALAZINE] 50 mg PO Q8HR #180 tablet 07/26/16 [Rx] Oxybutynin [Ditropan] 5 mg PO BID 07/28/16 [History] Potassium Chloride [Klor-Con 10] 10 meq PO BID 07/28/16 [History] Sodium Chloride [Sodium Chloride Tab] 1 gm PO TID 04/06/17 [History] Carvedilol 12.5 mg PO BID 01/20/18 [History] Chlorthalidone 25 mg PO DAILY 01/21/18 [History] Cholecalciferol (Vitamin D3) [Vitamin D3] 50,000 unit SQ WE 01/21/18 [History] Escitalopram [Lexapro] 20 mg PO DAILY 01/21/18 [History] Meloxicam [Mobic] 15 mg PO DAILY 01/21/18 [History] Docusate [Colace] 100 mg PO BID PRN capsule 01/28/18 [Rx] Alendronate Sodium 70 mg PO WE 04/27/18 [History] Guaifenesin [Mucinex] 600 mg PO Q12H PRN 04/27/18 [History] hydroCHLOROthiazide [Hydrochlorothiazide] 25 mg PO DAILY 04/27/18 [History] Allergies/Adverse Reactions: Allergy/AdvReac Type Severity Reaction Status Date / Time Penicillins Allergy Rash Verified 04/27/18 11:04 codeine AdvReac Vomiting Verified 04/27/18 11:04 Certification: Further, I certify that my clinical findings support that this patient is homebound (i.e. absences from home require considerable and taxing effort and are for medical reasons or spiritism services or infrequently or short duration when for other reasons) because: Homebound Reason: Leaving home requires considerable and taxing effort due to condition Attestation: My signature below is to certify that this patient is under my care and that I, or nurse practitioner, or a physician's teachers' assistant working with me, has a f rachna-to-face encounter with this patient.
== END 2018-05-03 11:25 | disposition home health service (06) | DRG 945 ==
LOC: INPGRE 19:54

== ENCOUNTER 2019-05-15 13:53 | Inpatient (IN) ==
[2019-05-16] MEDS ORDERED: Diclofenac Sodium (DR) 50 MG TABLET.DR PO PRN (18:39)
[2019-05-16] MEDS ORDERED: NON-FORMULARY MEDICATION 1 EACH EACH (Alendronate Sodium [Fosamax] 70 MG) PO SCH (18:45)
[2019-05-16] MEDS: Melatonin 3 MG TABLET PO PRN (19:52)
[2019-05-16] MEDS: BuPROPion SR (12 HR) 150 MG TABLET PO SCH (19:52)
[2019-05-16] MEDS: Famotidine 20 MG TABLET PO SCH (19:53)
[2019-05-16] MEDS: hydrALAZINE 25 MG TABLET PO SCH (23:39)
[2019-05-17 05:41] LABS: Basophils # 0.1 K/mcL (0.0-0.2); Basophils % 0.4 %; Eosinophils # 0.3 K/mcL (0.0-0.6); Eosinophils % 2.4 %; Hematocrit 32.5 % (35.3-44.9); Hemoglobin 11.2 g/dL (11.5-15.4); Immature Granulocytes % 0.7 % (0-4); Lymphocytes # 1.3 K/mcL (0.6-4.6); Lymphocytes % 10.3 %; Mean Corpuscular HGB Conc 34.5 g/dL (31.6-35.5); Mean Corpuscular Hemoglobin 30.8 pg (28.0-33.3); Mean Corpuscular Volume 89.3 fL (83.0-100.0); Mean Platelet Volume 8.5 fL (9.4-12.4); Monocytes # 1.4 K/mcL (0.0-1.3); Monocytes % 11.5 %; Neutrophils # 9.2 K/mcL (1.6-8.9); Platelet Count 328 K/mcL (140-400); Red Blood Count 3.64 M/mcL (3.82-4.97); Red Cell Distribution Width 14.8 % (11.5-14.5); Segmented Neutrophils % 74.7 %; White Blood Count 12.3 K/mcL (4.3-11.1)
[2019-05-17 05:58] LABS: BUN/Creatinine Ratio 15 (6-26); Blood Urea Nitrogen 10 mg/dL (8-23); Calcium 8.4 mg/dL (8.6-10.3); Carbon Dioxide 29 mEq/L (23-29); Chloride 97 mEq/L (98-107); Glucose 107 mg/dL (70-105); Osmolality,Calculated 270 (280-300); Potassium 3.9 mEq/L (3.5-5.1); Sodium 130 mEq/L (136-145); eGFR For African Americans > 60 (> 60); eGFR For Non-African Americans > 60 (> 60)
[2019-05-17] MEDS ORDERED: *HR* Enoxaparin 30 MG/0.3 ML SYRINGE SQ SCH (06:00)
[2019-05-17] MEDS: hydrALAZINE 25 MG TABLET PO SCH ×3 (09:27→23:12)
[2019-05-17] MEDS: Magnesium Oxide 400 MG TABLET PO SCH (09:27)
[2019-05-17] MEDS: Aspirin Enteric Coated 81 MG Tablet PO SCH (09:27)
[2019-05-17] MEDS: Famotidine 20 MG TABLET PO SCH ×2 (09:27→21:34)
[2019-05-17] MEDS: BuPROPion SR (12 HR) 150 MG TABLET PO SCH ×2 (09:27→21:35)
[2019-05-17] MEDS: carvediloL 6.25 MG TABLET PO SCH ×2 (09:28→17:26)
[2019-05-17 17:36] LABS: Bilirubin,Urine Negative (Negative); Blood,Urine Trace-intact (Negative); Clarity,Urine Clear (Clear); Color,Urine Yellow (Yellow); Glucose,Urine (UA) Normal (Normal); Ketones,Urine Negative (Negative); Leukocyte Esterase,Urine Trace (Negative); Nitrite,Urine Negative (Negative); Protein,Urine Trace mg/dL (Neg-Trace); Urobilinogen,Urine Normal (Normal)
[2019-05-17 18:15] LABS: Bacteria,Urine Moderate per hpf (None-Few); Squamous Epithelial Cell,Urine Few per lpf (None-Few); WBC,Urine 15-30 per hpf (0-3)
[2019-05-17] MEDS: Melatonin 3 MG TABLET PO PRN (23:14)
[2019-05-18] MEDS: *HR* Enoxaparin 40 MG/0.4 ML SYRINGE SQ SCH (05:13)
[2019-05-18] MEDS: BuPROPion SR (12 HR) 150 MG TABLET PO SCH ×2 (09:18→21:52)
[2019-05-18] MEDS: Aspirin Enteric Coated 81 MG Tablet PO SCH (09:19)
[2019-05-18] MEDS: carvediloL 6.25 MG TABLET PO SCH ×2 (09:19→16:01)
[2019-05-18] MEDS: Famotidine 20 MG TABLET PO SCH ×2 (09:19→21:52)
[2019-05-18] MEDS: Magnesium Oxide 400 MG TABLET PO SCH (09:19)
[2019-05-18] MEDS: hydrALAZINE 25 MG TABLET PO SCH ×3 (09:19→23:11)
[2019-05-18] MEDS: Melatonin 3 MG TABLET PO PRN (23:11)
[2019-05-19] MEDS: *HR* Enoxaparin 40 MG/0.4 ML SYRINGE SQ SCH (04:58)
[2019-05-19] MEDS: Magnesium Oxide 400 MG TABLET PO SCH (09:05)
[2019-05-19] MEDS: BuPROPion SR (12 HR) 150 MG TABLET PO SCH ×2 (09:05→20:10)
[2019-05-19] MEDS: carvediloL 6.25 MG TABLET PO SCH ×2 (09:05→17:40)
[2019-05-19] MEDS: hydrALAZINE 25 MG TABLET PO SCH ×2 (09:05→18:10)
[2019-05-19] MEDS: Famotidine 20 MG TABLET PO SCH ×2 (09:05→20:11)
[2019-05-19] MEDS: Aspirin Enteric Coated 81 MG Tablet PO SCH (09:05)
[2019-05-19] MEDS: hydrALAZINE 10 MG TABLET PO SCH ×2 (17:40→23:11)
[2019-05-19] MEDS: Melatonin 3 MG TABLET PO PRN (23:13)
[2019-05-20] MEDS: *HR* Enoxaparin 40 MG/0.4 ML SYRINGE SQ SCH (05:02)
[2019-05-20 05:05] LABS: Hematocrit 34.2 % (35.3-44.9); Hemoglobin 11.7 g/dL (11.5-15.4); Mean Corpuscular HGB Conc 34.2 g/dL (31.6-35.5); Mean Corpuscular Hemoglobin 30.9 pg (28.0-33.3); Mean Corpuscular Volume 90.2 fL (83.0-100.0); Mean Platelet Volume 8.2 fL (9.4-12.4); Platelet Count 359 K/mcL (140-400); Red Blood Count 3.79 M/mcL (3.82-4.97); Red Cell Distribution Width 15.2 % (11.5-14.5); White Blood Count 11.7 K/mcL (4.3-11.1)
[2019-05-20 05:21] LABS: Alanine Aminotransferase 22 Units/L (7-52); Albumin 3.4 g/dL (3.5-5.7); Albumin/Globulin Ratio 1.5 (1.1-2.2); Alkaline Phosphatase 95 Units/L (34-104); Aspartate Amino Transferase 19 Units/L (13-39); BUN/Creatinine Ratio 18 (6-26); Bilirubin,Total 0.4 mg/dL (0.3-1.0); Blood Urea Nitrogen 13 mg/dL (8-23); Carbon Dioxide 26 mEq/L (23-29); Chloride 96 mEq/L (98-107); Globulin 2.3 g/dL (2.4-3.5); Glucose 109 mg/dL (70-105); Magnesium 1.9 mg/dL (1.6-2.6); Osmolality,Calculated 265 (280-300); Potassium 4.5 mEq/L (3.5-5.1); Sodium 127 mEq/L (136-145); Total Protein 5.7 g/dL (6.4-8.9); eGFR For African Americans > 60 (> 60); eGFR For Non-African Americans > 60 (> 60)
[2019-05-20] MEDS: Famotidine 20 MG TABLET PO SCH ×2 (09:23→19:43)
[2019-05-20] MEDS: BuPROPion SR (12 HR) 150 MG TABLET PO SCH ×2 (09:23→19:43)
[2019-05-20] MEDS: carvediloL 6.25 MG TABLET PO SCH ×2 (09:23→17:24)
[2019-05-20] MEDS: Magnesium Oxide 400 MG TABLET PO SCH (09:23)
[2019-05-20] MEDS: Aspirin Enteric Coated 81 MG Tablet PO SCH (09:23)
[2019-05-20] MEDS: hydrALAZINE 10 MG TABLET PO SCH ×2 (09:24→17:24)
[2019-05-20] MEDS: Lisinopril 20 MG TABLET PO SCH (09:24)
[2019-05-20] MEDS: cephALEXin 500 MG CAPSULE PO SCH (19:42)
[2019-05-20] MEDS: hydrALAZINE 25 MG TABLET PO SCH (23:40)
[2019-05-20] MEDS: Melatonin 3 MG TABLET PO PRN (23:40)
[2019-05-21 05:45] LABS: BUN/Creatinine Ratio 23 (6-26); Blood Urea Nitrogen 19 mg/dL (8-23); Calcium 8.7 mg/dL (8.6-10.3); Carbon Dioxide 25 mEq/L (23-29); Chloride 97 mEq/L (98-107); Glucose 107 mg/dL (70-105); Osmolality,Calculated 267 (280-300); Potassium 4.6 mEq/L (3.5-5.1); Sodium 127 mEq/L (136-145); eGFR For African Americans > 60 (> 60); eGFR For Non-African Americans > 60 (> 60)
[2019-05-21] MEDS: cephALEXin 500 MG CAPSULE PO SCH ×3 (08:32→20:47)
[2019-05-21] MEDS: hydrALAZINE 25 MG TABLET PO SCH ×2 (08:32→16:15)
[2019-05-21] MEDS: Aspirin Enteric Coated 81 MG Tablet PO SCH (08:32)
[2019-05-21] MEDS: Lisinopril 20 MG TABLET PO SCH (08:32)
[2019-05-21] MEDS: carvediloL 6.25 MG TABLET PO SCH ×2 (08:32→17:04)
[2019-05-21] MEDS: Famotidine 20 MG TABLET PO SCH ×2 (08:33→20:46)
[2019-05-21] MEDS: Magnesium Oxide 400 MG TABLET PO SCH (08:33)
[2019-05-21] MEDS: BuPROPion SR (12 HR) 150 MG TABLET PO SCH ×2 (08:33→20:46)
[2019-05-21] MEDS ORDERED: 0.9 % Sodium Chloride 1,000 ML IV ONE (09:54)
[2019-05-21] MEDS ORDERED: 0.9 % Sodium Chloride 500 ML IV ONE (10:04)
[2019-05-21] MEDS ORDERED: 0.9 % Sodium Chloride 500 ML ONE (10:06)
[2019-05-21] MEDS ORDERED: 0.9 % Sodium Chloride 500 ML IVC SCH (16:15)
[2019-05-21] MEDS: Melatonin 3 MG TABLET PO PRN (20:48)
[2019-05-22] MEDS: hydrALAZINE 25 MG TABLET PO SCH ×3 (00:22→14:10)
[2019-05-22 07:22] LABS: Hematocrit 32.2 % (35.3-44.9); Hemoglobin 10.8 g/dL (11.5-15.4); Mean Corpuscular HGB Conc 33.5 g/dL (31.6-35.5); Mean Corpuscular Hemoglobin 30.5 pg (28.0-33.3); Mean Platelet Volume 8.6 fL (9.4-12.4); Platelet Count 341 K/mcL (140-400); Red Blood Count 3.54 M/mcL (3.82-4.97); Red Cell Distribution Width 15.3 % (11.5-14.5); White Blood Count 7.9 K/mcL (4.3-11.1)
[2019-05-22 07:40] LABS: BUN/Creatinine Ratio 25 (6-26); Blood Urea Nitrogen 16 mg/dL (8-23); Calcium 8.5 mg/dL (8.6-10.3); Carbon Dioxide 25 mEq/L (23-29); Chloride 99 mEq/L (98-107); Glucose 100 mg/dL (70-105); Osmolality,Calculated 269 (280-300); Potassium 4.2 mEq/L (3.5-5.1); Sodium 129 mEq/L (136-145); eGFR For African Americans > 60 (> 60); eGFR For Non-African Americans > 60 (> 60)
[2019-05-22] MEDS: BuPROPion SR (12 HR) 150 MG TABLET PO SCH ×2 (08:18→20:52)
[2019-05-22] MEDS: carvediloL 6.25 MG TABLET PO SCH ×2 (08:19→14:50)
[2019-05-22] MEDS: Famotidine 20 MG TABLET PO SCH ×2 (08:19→20:54)
[2019-05-22] MEDS: Lisinopril 20 MG TABLET PO SCH (08:19)
[2019-05-22] MEDS: Aspirin Enteric Coated 81 MG Tablet PO SCH (08:19)
[2019-05-22] MEDS: cephALEXin 500 MG CAPSULE PO SCH ×3 (08:19→20:51)
[2019-05-22] MEDS: Magnesium Oxide 400 MG TABLET PO SCH (08:19)
[2019-05-22] MEDS ORDERED: Patient Taking Own Medication 1 EACH PO SCH (09:00)
[2019-05-22] MEDS ORDERED: 0.9 % Sodium Chloride 1,000 ML IVC SCH (11:15)
[2019-05-22] MEDS: Melatonin 3 MG TABLET PO PRN (20:52)
[2019-05-23] MEDS: hydrALAZINE 25 MG TABLET PO SCH ×3 (00:25→16:24)
[2019-05-23] MEDS: cephALEXin 500 MG CAPSULE PO SCH ×3 (08:27→20:55)
[2019-05-23] MEDS: BuPROPion SR (12 HR) 150 MG TABLET PO SCH ×2 (08:27→20:55)
[2019-05-23] MEDS: Famotidine 20 MG TABLET PO SCH ×2 (08:27→20:55)
[2019-05-23] MEDS: Aspirin Enteric Coated 81 MG Tablet PO SCH (08:28)
[2019-05-23] MEDS: Magnesium Oxide 400 MG TABLET PO SCH (09:37)
[2019-05-23] MEDS: carvediloL 6.25 MG TABLET PO SCH ×2 (14:36→16:24)
[2019-05-23] MEDS: Lisinopril 20 MG TABLET PO SCH (14:37)
[2019-05-24] MEDS: hydrALAZINE 25 MG TABLET PO SCH ×3 (02:10→17:11)
[2019-05-24 06:25] LABS: BUN/Creatinine Ratio 31 (6-26); Blood Urea Nitrogen 21 mg/dL (8-23); Calcium 8.2 mg/dL (8.6-10.3); Carbon Dioxide 27 mEq/L (23-29); Chloride 101 mEq/L (98-107); Glucose 108 mg/dL (70-105); Osmolality,Calculated 278 (280-300); Potassium 3.8 mEq/L (3.5-5.1); Sodium 132 mEq/L (136-145); eGFR For African Americans > 60 (> 60); eGFR For Non-African Americans > 60 (> 60)
[2019-05-24] MEDS ORDERED: hydrALAZINE 25 MG TABLET ONE (09:00)
[2019-05-24] MEDS ORDERED: Aspirin Enteric Coated 81 MG Tablet PO ONE (09:00)
[2019-05-24] MEDS ORDERED: Magnesium Oxide 400 MG TABLET ONE (09:00)
[2019-05-24] MEDS ORDERED: carvediloL 6.25 MG TABLET ONE (09:00)
[2019-05-24] MEDS ORDERED: cephALEXin 500 MG CAPSULE PO ONE ×2 (09:00→15:17)
[2019-05-24] MEDS ORDERED: BuPROPion SR (12 HR) 150 MG TABLET PO ONE (09:00)
[2019-05-24] MEDS ORDERED: Lisinopril 20 MG TABLET ONE (09:00)
[2019-05-24] MEDS ORDERED: Famotidine 20 MG TABLET ONE (09:00)
[2019-05-24] MEDS: Magnesium Oxide 400 MG TABLET PO SCH (16:22)
[2019-05-24] MEDS: Aspirin Enteric Coated 81 MG Tablet PO SCH (16:22)
[2019-05-24] MEDS: Famotidine 20 MG TABLET PO SCH ×2 (16:22→21:01)
[2019-05-24] MEDS: cephALEXin 500 MG CAPSULE PO SCH ×2 (16:22→21:01)
[2019-05-24] MEDS: carvediloL 6.25 MG TABLET PO SCH ×2 (16:22→17:11)
[2019-05-24] MEDS: BuPROPion SR (12 HR) 150 MG TABLET PO SCH ×2 (16:23→21:01)
[2019-05-24] MEDS: Lisinopril 20 MG TABLET PO SCH (16:23)
[2019-05-24] MEDS: Melatonin 3 MG TABLET PO PRN (21:06)
[2019-05-25] MEDS: hydrALAZINE 25 MG TABLET PO SCH ×3 (00:10→17:12)
[2019-05-25] MEDS: Famotidine 20 MG TABLET PO SCH ×2 (09:02→20:24)
[2019-05-25] MEDS: cephALEXin 500 MG CAPSULE PO SCH ×3 (09:02→20:25)
[2019-05-25] MEDS: Aspirin Enteric Coated 81 MG Tablet PO SCH (09:02)
[2019-05-25] MEDS: carvediloL 6.25 MG TABLET PO SCH ×2 (09:02→17:12)
[2019-05-25] MEDS: Magnesium Oxide 400 MG TABLET PO SCH (09:03)
[2019-05-25] MEDS: Lisinopril 20 MG TABLET PO SCH (09:03)
[2019-05-25] MEDS: BuPROPion SR (12 HR) 150 MG TABLET PO SCH ×2 (09:03→20:25)
[2019-05-25] MEDS: Melatonin 3 MG TABLET PO PRN (20:30)
[2019-05-26] MEDS: hydrALAZINE 25 MG TABLET PO SCH ×4 (00:08→23:50)
[2019-05-26 05:40] LABS: Hematocrit 32.7 % (35.3-44.9); Hemoglobin 11.1 g/dL (11.5-15.4); Mean Corpuscular HGB Conc 33.9 g/dL (31.6-35.5); Mean Corpuscular Hemoglobin 30.7 pg (28.0-33.3); Mean Corpuscular Volume 90.3 fL (83.0-100.0); Mean Platelet Volume 8.3 fL (9.4-12.4); Platelet Count 319 K/mcL (140-400); Red Blood Count 3.62 M/mcL (3.82-4.97); Red Cell Distribution Width 15.1 % (11.5-14.5); White Blood Count 6.9 K/mcL (4.3-11.1)
[2019-05-26 05:55] LABS: BUN/Creatinine Ratio 24 (6-26); Blood Urea Nitrogen 14 mg/dL (8-23); Calcium 8.4 mg/dL (8.6-10.3); Carbon Dioxide 31 mEq/L (23-29); Chloride 101 mEq/L (98-107); Glucose 104 mg/dL (70-105); Magnesium 2.1 mg/dL (1.6-2.6); Osmolality,Calculated 279 (280-300); Potassium 3.6 mEq/L (3.5-5.1); Sodium 134 mEq/L (136-145); eGFR For African Americans > 60 (> 60); eGFR For Non-African Americans > 60 (> 60)
[2019-05-26] MEDS: carvediloL 6.25 MG TABLET PO SCH ×2 (08:13→16:37)
[2019-05-26] MEDS: Aspirin Enteric Coated 81 MG Tablet PO SCH (08:13)
[2019-05-26] MEDS: Lisinopril 20 MG TABLET PO SCH (08:13)
[2019-05-26] MEDS: cephALEXin 500 MG CAPSULE PO SCH ×3 (08:14→22:26)
[2019-05-26] MEDS: BuPROPion SR (12 HR) 150 MG TABLET PO SCH ×2 (08:14→22:25)
[2019-05-26] MEDS: Magnesium Oxide 400 MG TABLET PO SCH (08:14)
[2019-05-26] MEDS: Famotidine 20 MG TABLET PO SCH ×2 (08:14→22:26)
[2019-05-26] MEDS ORDERED: carvediloL 6.25 MG TABLET PO STA (21:23)
[2019-05-26] MEDS: Melatonin 3 MG TABLET PO PRN (22:26)
[2019-05-27] MEDS: Magnesium Oxide 400 MG TABLET PO SCH (08:12)
[2019-05-27] MEDS: cephALEXin 500 MG CAPSULE PO SCH ×3 (08:13→20:24)
[2019-05-27] MEDS: Aspirin Enteric Coated 81 MG Tablet PO SCH (08:13)
[2019-05-27] MEDS: carvediloL 6.25 MG TABLET PO SCH ×2 (08:13→16:41)
[2019-05-27] MEDS: hydrALAZINE 25 MG TABLET PO SCH ×2 (08:13→16:42)
[2019-05-27] MEDS: Famotidine 20 MG TABLET PO SCH ×2 (08:13→20:23)
[2019-05-27] MEDS: Lisinopril 20 MG TABLET PO SCH (08:13)
[2019-05-27] MEDS: BuPROPion SR (12 HR) 150 MG TABLET PO SCH ×2 (08:13→20:23)
[2019-05-27] MEDS: Melatonin 3 MG TABLET PO PRN (20:24)
[2019-05-28] MEDS: hydrALAZINE 25 MG TABLET PO SCH ×4 (00:13→23:22)
[2019-05-28] MEDS: carvediloL 6.25 MG TABLET PO SCH ×2 (08:23→15:50)
[2019-05-28] MEDS: cephALEXin 500 MG CAPSULE PO SCH (08:23)
[2019-05-28] MEDS: Magnesium Oxide 400 MG TABLET PO SCH (08:23)
[2019-05-28] MEDS: Famotidine 20 MG TABLET PO SCH ×2 (08:23→23:21)
[2019-05-28] MEDS: Aspirin Enteric Coated 81 MG Tablet PO SCH (08:23)
[2019-05-28] MEDS: BuPROPion SR (12 HR) 150 MG TABLET PO SCH ×2 (08:23→23:20)
[2019-05-28] MEDS: Lisinopril 20 MG TABLET PO SCH (08:23)
[2019-05-28] MEDS: Melatonin 3 MG TABLET PO PRN (23:22)
[2019-05-29] MEDS: Lisinopril 20 MG TABLET PO SCH (08:11)
[2019-05-29] MEDS: Magnesium Oxide 400 MG TABLET PO SCH (08:11)
[2019-05-29] MEDS: Aspirin Enteric Coated 81 MG Tablet PO SCH (08:11)
[2019-05-29] MEDS: carvediloL 6.25 MG TABLET PO SCH ×2 (08:11→17:43)
[2019-05-29] MEDS: BuPROPion SR (12 HR) 150 MG TABLET PO SCH ×2 (08:11→21:49)
[2019-05-29] MEDS: hydrALAZINE 25 MG TABLET PO SCH ×2 (08:11→17:43)
[2019-05-29] MEDS: Famotidine 20 MG TABLET PO SCH ×2 (08:11→21:49)
[2019-05-29] MEDS: Melatonin 3 MG TABLET PO PRN (21:50)
[2019-05-30] MEDS: hydrALAZINE 25 MG TABLET PO SCH ×4 (00:30→21:10)
[2019-05-30] MEDS: carvediloL 6.25 MG TABLET PO SCH ×2 (08:59→15:40)
[2019-05-30] MEDS: Aspirin Enteric Coated 81 MG Tablet PO SCH (08:59)
[2019-05-30] MEDS: Famotidine 20 MG TABLET PO SCH ×2 (08:59→21:11)
[2019-05-30] MEDS: Magnesium Oxide 400 MG TABLET PO SCH (09:00)
[2019-05-30] MEDS: BuPROPion SR (12 HR) 150 MG TABLET PO SCH ×2 (09:01→21:11)
[2019-05-30] MEDS: Lisinopril 20 MG TABLET PO SCH (09:01)
[2019-05-30] MEDS ORDERED: hydrALAZINE 25 MG TABLET PO SCH (12:00)
[2019-05-30] MEDS: Melatonin 3 MG TABLET PO PRN (21:11)
[2019-05-31 07:20] VITALS: BP 175/83
[2019-05-31] MEDS: carvediloL 6.25 MG TABLET PO SCH (08:34)
[2019-05-31] MEDS: Famotidine 20 MG TABLET PO SCH (08:34)
[2019-05-31] MEDS: BuPROPion SR (12 HR) 150 MG TABLET PO SCH (08:34)
[2019-05-31] MEDS: Magnesium Oxide 400 MG TABLET PO SCH (08:35)
[2019-05-31] MEDS: Aspirin Enteric Coated 81 MG Tablet PO SCH (08:35)
[2019-05-31] MEDS: hydrALAZINE 25 MG TABLET PO SCH (08:35)
[2019-05-31] MEDS: Lisinopril 20 MG TABLET PO SCH (08:35)
== END 2019-05-31 12:30 | disposition home health service (06) | DRG 57 ==
LOC: INPGRE 05-16 16:37
PROVIDERS: ADMIT Family Medicine; ATTEND Family Medicine

== ENCOUNTER 2019-09-11 11:01 | Inpatient (IN) ==
[2019-09-16] MEDS ORDERED: polyethylene glycoL 3350 17 GM POWD.PACK PO PRN (19:03)
[2019-09-16] MEDS ORDERED: Ondansetron ODT 4 MG TAB.RAPDIS SL PRN (19:03)
[2019-09-16] MEDS ORDERED: Ondansetron ODT 4 MG TAB.RAPDIS PO PRN (19:03)
[2019-09-16] MEDS ORDERED: Melatonin 3 MG TABLET PO PRN (19:03)
[2019-09-16] MEDS: Spironolactone 25 MG TABLET PO SCH (20:13)
[2019-09-16] MEDS: carvediloL 25 MG TABLET PO SCH (20:14)
[2019-09-16] MEDS: BuPROPion SR (12 HR) 150 MG TABLET PO SCH (20:19)
[2019-09-16] MEDS: Famotidine 20 MG TABLET PO SCH (20:19)
[2019-09-17] MEDS: hydrALAZINE 25 MG TABLET PO SCH ×4 (00:16→23:01)
[2019-09-17 05:39] LABS: Basophils % 0.4 %; Eosinophils # 0.1 K/mcL (0.0-0.6); Eosinophils % 1.2 %; Hematocrit 34.2 % (35.3-44.9); Hemoglobin 12.1 g/dL (11.5-15.4); Immature Granulocytes % 0.6 % (0-4); Lymphocytes # 1.6 K/mcL (0.6-4.6); Lymphocytes % 15.5 %; Mean Corpuscular HGB Conc 35.4 g/dL (31.6-35.5); Mean Corpuscular Hemoglobin 29.7 pg (28.0-33.3); Mean Platelet Volume 8.7 fL (9.4-12.4); Monocytes # 1.7 K/mcL (0.0-1.3); Monocytes % 16.5 %; Neutrophils # 6.7 K/mcL (1.6-8.9); Platelet Count 334 K/mcL (140-400); Red Blood Count 4.07 M/mcL (3.82-4.97); Red Cell Distribution Width 14.7 % (11.5-14.5); Segmented Neutrophils % 65.8 %; White Blood Count 10.1 K/mcL (4.3-11.1)
[2019-09-17 05:56] LABS: BUN/Creatinine Ratio 25 (6-26); Blood Urea Nitrogen 13 mg/dL (8-23); Carbon Dioxide 20 mEq/L (23-29); Chloride 93 mEq/L (98-107); Glucose 92 mg/dL (70-105); Osmolality,Calculated 254 (280-300); Potassium 3.7 mEq/L (3.5-5.1); Sodium 122 mEq/L (136-145); eGFR For African Americans > 60 (> 60); eGFR For Non-African Americans > 60 (> 60)
[2019-09-17 06:02] LABS: Calcium 8.8 mg/dL (8.6-10.3); Magnesium 1.6 mg/dL (1.6-2.6)
[2019-09-17] MEDS: carvediloL 25 MG TABLET PO SCH ×2 (09:42→22:47)
[2019-09-17] MEDS: BuPROPion SR (12 HR) 150 MG TABLET PO SCH ×2 (09:42→23:00)
[2019-09-17] MEDS: Famotidine 20 MG TABLET PO SCH ×2 (09:42→23:00)
[2019-09-17] MEDS: Magnesium Oxide 400 MG TABLET PO SCH (09:43)
[2019-09-17] MEDS: lisinopriL 10 MG TABLET PO SCH (09:43)
[2019-09-17] MEDS: 0.9 % Sodium Chloride 1,000 ML IVC SCH ×2 (10:15→21:26)
[2019-09-18 06:52] LABS: BUN/Creatinine Ratio 19 (6-26); Blood Urea Nitrogen 10 mg/dL (8-23); Calcium 8.1 mg/dL (8.6-10.3); Carbon Dioxide 20 mEq/L (23-29); Chloride 103 mEq/L (98-107); Glucose 96 mg/dL (70-105); Osmolality,Calculated 267 (280-300); Potassium 3.5 mEq/L (3.5-5.1); Sodium 129 mEq/L (136-145); eGFR For African Americans > 60 (> 60); eGFR For Non-African Americans > 60 (> 60)
[2019-09-18] MEDS: 0.9 % Sodium Chloride 1,000 ML IVC SCH ×2 (08:04→19:35)
[2019-09-18] MEDS: Famotidine 20 MG TABLET PO SCH ×2 (08:15→20:34)
[2019-09-18] MEDS: Magnesium Oxide 400 MG TABLET PO SCH (08:15)
[2019-09-18] MEDS: hydrALAZINE 25 MG TABLET PO SCH ×2 (08:15→16:24)
[2019-09-18] MEDS: lisinopriL 10 MG TABLET PO SCH (08:15)
[2019-09-18] MEDS: carvediloL 25 MG TABLET PO SCH ×2 (08:15→20:33)
[2019-09-18] MEDS: BuPROPion SR (12 HR) 150 MG TABLET PO SCH ×2 (08:15→20:33)
[2019-09-18 15:46] LABS: BUN/Creatinine Ratio 19 (6-26); Blood Urea Nitrogen 10 mg/dL (8-23); Calcium 8.1 mg/dL (8.6-10.3); Carbon Dioxide 19 mEq/L (23-29); Chloride 104 mEq/L (98-107); Glucose 130 mg/dL (70-105); Osmolality,Calculated 271 (280-300); Potassium 3.4 mEq/L (3.5-5.1); Sodium 130 mEq/L (136-145); eGFR For African Americans > 60 (> 60); eGFR For Non-African Americans > 60 (> 60)
[2019-09-18] MEDS ORDERED: NON-FORMULARY MEDICATION 1 EACH EACH (Alendronate Sodium [Fosamax] 70 MG) PO SCH (19:03)
[2019-09-19] MEDS: hydrALAZINE 25 MG TABLET PO SCH ×4 (00:32→23:15)
[2019-09-19] MEDS: 0.9 % Sodium Chloride 1,000 ML IVC SCH ×2 (04:56→16:36)
[2019-09-19 05:42] LABS: Hematocrit 30.8 % (35.3-44.9); Hemoglobin 10.9 g/dL (11.5-15.4); Mean Corpuscular HGB Conc 35.4 g/dL (31.6-35.5); Mean Corpuscular Hemoglobin 29.8 pg (28.0-33.3); Mean Corpuscular Volume 84.2 fL (83.0-100.0); Mean Platelet Volume 8.5 fL (9.4-12.4); Platelet Count 328 K/mcL (140-400); Red Blood Count 3.66 M/mcL (3.82-4.97); Red Cell Distribution Width 14.9 % (11.5-14.5); White Blood Count 8.1 K/mcL (4.3-11.1)
[2019-09-19 05:58] LABS: Alanine Aminotransferase 19 Units/L (7-52); Albumin 3.4 g/dL (3.5-5.7); Albumin/Globulin Ratio 1.6 (1.1-2.2); Alkaline Phosphatase 77 Units/L (34-104); Aspartate Amino Transferase 20 Units/L (13-39); BUN/Creatinine Ratio 13 (6-26); Bilirubin,Total 0.5 mg/dL (0.3-1.0); Blood Urea Nitrogen 6 mg/dL (8-23); Calcium 8.1 mg/dL (8.6-10.3); Carbon Dioxide 22 mEq/L (23-29); Chloride 101 mEq/L (98-107); Globulin 2.1 g/dL (2.4-3.5); Glucose 98 mg/dL (70-105); Magnesium 1.4 mg/dL (1.6-2.6); Osmolality,Calculated 268 (280-300); Potassium 2.8 mEq/L (3.5-5.1); Sodium 130 mEq/L (136-145); Total Protein 5.5 g/dL (6.4-8.9); eGFR For African Americans > 60 (> 60); eGFR For Non-African Americans > 60 (> 60)
[2019-09-19 06:11] LABS: Thyroid Stimulating Hormone 1.551 mcIU/mL (0.340-5.600)
[2019-09-19] MEDS: lisinopriL 10 MG TABLET PO SCH (08:58)
[2019-09-19] MEDS: Famotidine 20 MG TABLET PO SCH ×2 (08:58→20:32)
[2019-09-19] MEDS: carvediloL 25 MG TABLET PO SCH ×2 (08:59→20:32)
[2019-09-19] MEDS: BuPROPion SR (12 HR) 150 MG TABLET PO SCH ×2 (08:59→20:31)
[2019-09-19] MEDS: Magnesium Oxide 400 MG TABLET PO SCH ×2 (08:59→20:32)
[2019-09-19] MEDS: Spironolactone 25 MG TABLET PO SCH (09:19)
[2019-09-19 15:53] LABS: BUN/Creatinine Ratio 12 (6-26); Blood Urea Nitrogen 6 mg/dL (8-23); Calcium 8.4 mg/dL (8.6-10.3); Carbon Dioxide 22 mEq/L (23-29); Chloride 100 mEq/L (98-107); Glucose 108 mg/dL (70-105); Magnesium 2.2 mg/dL (1.6-2.6); Osmolality,Calculated 270 (280-300); Potassium 3.3 mEq/L (3.5-5.1); Sodium 131 mEq/L (136-145); eGFR For African Americans > 60 (> 60); eGFR For Non-African Americans > 60 (> 60)
[2019-09-19 16:58] LABS: Hemoglobin 11.4 g/dL (11.5-15.4); Mean Corpuscular HGB Conc 35.6 g/dL (31.6-35.5); Mean Corpuscular Hemoglobin 30.2 pg (28.0-33.3); Mean Corpuscular Volume 84.7 fL (83.0-100.0); Mean Platelet Volume 8.9 fL (9.4-12.4); Platelet Count 394 K/mcL (140-400); Red Blood Count 3.78 M/mcL (3.82-4.97); Red Cell Distribution Width 15.2 % (11.5-14.5); White Blood Count 9.1 K/mcL (4.3-11.1)
[2019-09-19] MEDS: Acetaminophen 325 MG TABLET PO PRN (17:10)
[2019-09-20] MEDS: Famotidine 20 MG TABLET PO SCH ×2 (08:52→21:37)
[2019-09-20] MEDS: lisinopriL 10 MG TABLET PO SCH (08:53)
[2019-09-20] MEDS: Acetaminophen 325 MG TABLET PO PRN (08:54)
[2019-09-20] MEDS: hydrALAZINE 25 MG TABLET PO SCH ×3 (08:55→23:56)
[2019-09-20] MEDS: carvediloL 25 MG TABLET PO SCH ×2 (08:56→21:36)
[2019-09-20] MEDS: BuPROPion SR (12 HR) 150 MG TABLET PO SCH ×2 (08:56→21:38)
[2019-09-20] MEDS: Magnesium Oxide 400 MG TABLET PO SCH ×2 (08:56→21:38)
[2019-09-20] MEDS ORDERED: lisinopriL 10 MG TABLET PO ONE (18:27)
[2019-09-21 05:10] LABS: Basophils # 0.1 K/mcL (0.0-0.2); Basophils % 0.7 %; Eosinophils # 0.2 K/mcL (0.0-0.6); Eosinophils % 3.3 %; Hemoglobin 10.4 g/dL (11.5-15.4); Immature Granulocytes % 0.6 % (0-4); Lymphocytes # 1.7 K/mcL (0.6-4.6); Lymphocytes % 24.1 %; Mean Corpuscular HGB Conc 34.7 g/dL (31.6-35.5); Mean Corpuscular Hemoglobin 29.6 pg (28.0-33.3); Mean Corpuscular Volume 85.5 fL (83.0-100.0); Mean Platelet Volume 8.4 fL (9.4-12.4); Monocytes # 1.1 K/mcL (0.0-1.3); Monocytes % 15.6 %; Platelet Count 321 K/mcL (140-400); Red Blood Count 3.51 M/mcL (3.82-4.97); Red Cell Distribution Width 15.4 % (11.5-14.5); Segmented Neutrophils % 55.7 %; White Blood Count 7.2 K/mcL (4.3-11.1)
[2019-09-21 05:28] LABS: BUN/Creatinine Ratio 23 (6-26); Blood Urea Nitrogen 12 mg/dL (8-23); Calcium 8.3 mg/dL (8.6-10.3); Carbon Dioxide 22 mEq/L (23-29); Chloride 102 mEq/L (98-107); Glucose 93 mg/dL (70-105); Magnesium 1.8 mg/dL (1.6-2.6); Osmolality,Calculated 273 (280-300); Potassium 3.5 mEq/L (3.5-5.1); Sodium 132 mEq/L (136-145); eGFR For African Americans > 60 (> 60); eGFR For Non-African Americans > 60 (> 60)
[2019-09-21] MEDS: Acetaminophen 325 MG TABLET PO PRN (09:21)
[2019-09-21] MEDS: Famotidine 20 MG TABLET PO SCH ×2 (09:22→20:12)
[2019-09-21] MEDS: BuPROPion SR (12 HR) 150 MG TABLET PO SCH ×2 (09:22→20:13)
[2019-09-21] MEDS: hydrALAZINE 25 MG TABLET PO SCH ×3 (09:22→23:46)
[2019-09-21] MEDS: Magnesium Oxide 400 MG TABLET PO SCH ×2 (09:22→20:15)
[2019-09-21] MEDS: lisinopriL 10 MG TABLET PO SCH (09:22)
[2019-09-21] MEDS: carvediloL 25 MG TABLET PO SCH ×2 (09:22→20:14)
[2019-09-22] MEDS: hydrALAZINE 25 MG TABLET PO SCH ×3 (09:13→23:45)
[2019-09-22] MEDS: Famotidine 20 MG TABLET PO SCH ×2 (09:13→20:54)
[2019-09-22] MEDS: Magnesium Oxide 400 MG TABLET PO SCH ×2 (09:13→20:53)
[2019-09-22] MEDS: BuPROPion SR (12 HR) 150 MG TABLET PO SCH ×2 (09:13→20:54)
[2019-09-22] MEDS: carvediloL 25 MG TABLET PO SCH ×2 (09:13→20:53)
[2019-09-22] MEDS: lisinopriL 10 MG TABLET PO SCH (09:13)
[2019-09-23 06:47] VITALS: BP 148/80
[2019-09-23] MEDS: lisinopriL 10 MG TABLET PO SCH (08:57)
[2019-09-23] MEDS: hydrALAZINE 25 MG TABLET PO SCH (08:57)
[2019-09-23] MEDS: carvediloL 25 MG TABLET PO SCH (08:57)
[2019-09-23] MEDS: BuPROPion SR (12 HR) 150 MG TABLET PO SCH (08:57)
[2019-09-23] MEDS: Famotidine 20 MG TABLET PO SCH (08:57)
[2019-09-23] MEDS: Magnesium Oxide 400 MG TABLET PO SCH (08:58)
== END 2019-09-23 15:43 | DRG 559 ==
LOC: INPGRE 09-16 18:00
PROVIDERS: ADMIT Family Medicine; ATTEND Family Medicine